=== PATIENT | female | born 1940 | race Caucasian/White ===

== ENCOUNTER 2018-04-09 08:10 | Inpatient (IN) | payer OTHER ==
[2018-04-09 08:21] VITALS: BMI 23.0
--- NOTE | 2018-04-09 08:26 | DR.DIZZY ---
HPI - Time seen Time seen: 21:00 - PCP Primary Care Physician: Denae HUFF - Complaint Chief Complaint:: PT. C/O DIZZINESS, HEADACHE, N/V. PT. WOKE UP THIS MORNING WITH SEVERE DIZZINESS. - Source History Provided: Patient, EMS - Mode of Arrival Mode of Arrival: EMS - Timing Onset of Chief Complaint: 04/09/18 <SHELDON EDUARDO - Last Filed: 04/09/18 08:22> - Time seen Time seen: 21:00 - Nurses Notes Reviewed Nurses Notes Review: Yes - Source History Provided: Patient - Context Stroke Symptoms: None <DANIA JOSE - Last Filed: 04/09/18 11:21> PMH - PMH Past Medical History: Yes Past Medical History: CVA, Diabetes, Dyslipidemia, GERD, Hypertension Past Surgical History: Yes Surgical History: [employer] Surgery Past Surgical History Comment: D&C - Family History History of Family Medical Conditions: Yes Family Medical History: [place] - Social History Does patient currently use any type of tobacco product: No Have you used tobacco products in the last 12 months: No Type of Tobacco Use: None Does any household member use tobacco: No Alcohol Use: None Do you use any recreational Drugs:: No Lives With: Family Lives Where: Home - infectious screening In the last 2 months have you had wt loss of >10#?: NO Have you had fever, night sweats or hemotysis?: No Have you traveled outside the country in the last 6 months?: No Isolation: Standard <SHELDON EDUARDO - Last Filed: 04/09/18 08:22> - Vital Signs Vitals: Temperature 97 F Pulse Rate [Left Radial] 68 Pulse Rate 66 Respiratory Rate 20 Blood Pressure [Left Arm] 162/70 Blood Pressure [Right Arm] 138/63 Blood Pressure 133/63 O2 Sat by Pulse Oximetry 97 Course - Reevaluation 1st: Improved 2nd: Unchanged - Education/Counseling Education/Counseling: Patient, Family, Education, Counseling Educated On: Treatment, Diagnosis, Prognosis, Needs for Follow Up <DANIA JOSE - Last Filed: 04/09/18 11:21> ROR - Labs Reviewed Result Diagrams: 04/09/18 09:00 04/09/18 09:00 <DANIA JOSE - Last Filed: 04/09/18 11:21> - Labs Reviewed Laboratory: WBC 6.4 X10^3/uL (3.6-10.0) 04/09/18 09:00 RBC 3.31 X10^6/uL (3.5-5.4) L 04/09/18 09:00 Hgb 9.6 g/dL (12.0-16.0) L 04/09/18 09:00 Hct 27.9 % (36.0-47.0) L 04/09/18 09:00 MCV 84.3 fL (80.0-100.0) 04/09/18 09:00 MCH 29.0 pg (27.0-34.0) 04/09/18 09:00 MCHC 34.4 g/dL (33.0-35.0) 04/09/18 09:00 RDW 12.7 % (11.6-16.5) 04/09/18 09:00 Plt Count 295 X10^3/uL (150.0-450.0) 04/09/18 09:00 MPV 8.6 fL (7.4-11.0) 04/09/18 09:00 Neut % (Auto) 79.3 % (42.0-75.0) H 04/09/18 09:00 Lymph % (Auto) 14.4 % (21.0-51.0) L 04/09/18 09:00 [place] % (Auto) 5.7 % (0.0-13.0) 04/09/18 09:00 Eos % (Auto) 0.2 % (0.9-2.9) L 04/09/18 09:00 Baso % (Auto) 0.4 % (0.2-1.0) 04/09/18 09:00 Neut # (Auto) 5.1 x10^3/uL (2.2-4.8) H 04/09/18 09:00 Lymph # (Auto) 0.9 X10^3/uL (1.3-2.9) L 04/09/18 09:00 [place] # (Auto) 0.4 x10^3/uL (0.3-0.8) 04/09/18 09:00 Eos # (Auto) 0.0 x10^3/uL (0.0-0.2) 04/09/18 09:00 Baso # (Auto) 0.0 X10^3/uL (0.0-0.1) 04/09/18 09:00 Absolute Nucleated RBC 0.0 /100WBC 04/09/18 09:00 Sodium 136 mmol/L (136-145) 04/09/18 09:00 Corrected Sodium 138 mmol/L (136-145) 04/09/18 09:00 Potassium 3.8 mmol/L (3.5-5.1) 04/09/18 09:00 Chloride 102 mmol/L (98-107) 04/09/18 09:00 Carbon Dioxide 25.1 mmol/L (21-32) 04/09/18 09:00 BUN 24 mg/dL (7-18) H 04/09/18 09:00 Creatinine 1.23 mg/dL (0.55-1.02) H 04/09/18 09:00 Est GFR (MDRD) Af Amer 54 (>60) L 04/09/18 09:00 Est GFR (MDRD) Non-Af 45 (>60) L 04/09/18 09:00 Glucose 193 mg/dL (65-99) H 04/09/18 09:00 Calcium 8.1 mg/dL (8.5-10.1) L 04/09/18 09:00 Corrected Calcium TNP 04/09/18 09:00 Total Bilirubin 0.40 mg/dL (0.2-1.0) 04/09/18 09:00 AST 29 Units/L (15-37) 04/09/18 09:00 ALT 32 Units/L (12-78) 04/09/18 09:00 Alkaline Phosphatase 50 Units/L (46-116) 04/09/18 09:00 Total Protein 7.6 g/dL (6.4-8.2) 04/09/18 09:00 Albumin 4.1 g/dL (3.4-5.0) 04/09/18 09:00 Globulin 3.5 g/dL (2.5-4.5) 04/09/18 09:00 Albumin/Globulin Ratio 1.2 Ratio (1.1-2.1) 04/09/18 09:00 <SHELDON EDUARDO - Last Filed: 04/09/18 08:22> <DANIA JOSE - Last Filed: 04/09/18 11:21> - Diagnosis Discharge Problem: Vertigo of central origin - Discharge Plan Disposition: ADMITTED INPATIENT Condition: Stable - Follow ups/Referrals Follow ups/Referrals: ESTELA HUFF [Primary Care Provider] - 3 days - Instructions Instructions: Vertigo, [id number]
[2018-04-09] MEDS ORDERED: ANTIVERT TAB 25 MG PO ONE (08:30)
[2018-04-09] MEDS ORDERED: PHENERGAN INJ 25 MG IV ONE (08:31)
[2018-04-09] MEDS ORDERED: PHENERGAN INJ 25 MG ONE (08:33)
[2018-04-09] MEDS ORDERED: ANTIVERT TAB 25 MG ONE (08:33)
[2018-04-09 09:10] LABS: BASOPHILS % (AUTO) 0.4 % (0.2-1.0); EOSINOPHILS % (AUTO) 0.2 % (0.9-2.9); HEMATOCRIT 27.9 % (36.0-47.0); HEMOGLOBIN 9.6 g/dL (12.0-16.0); LYMPHOCYTES # (AUTO) 0.9 X10^3/uL (1.3-2.9); LYMPHOCYTES % (AUTO) 14.4 % (21.0-51.0); MEAN CORPUSCULAR HGB CONC 34.4 g/dL (33.0-35.0); MEAN CORPUSCULAR VOLUME 84.3 fL (80.0-100.0); MEAN PLATELET VOLUME 8.6 fL (7.4-11.0); MONOCYTES # (AUTO) 0.4 x10^3/uL (0.3-0.8); MONOCYTES % (AUTO) 5.7 % (0.0-13.0); NEUTROPHILS # (AUTO) 5.1 x10^3/uL (2.2-4.8); NEUTROPHILS % (AUTO) 79.3 % (42.0-75.0); PLATELET COUNT 295 X10^3/uL (150.0-450.0); RED BLOOD COUNT 3.31 X10^6/uL (3.5-5.4); RED CELL DISTRIBUTION WIDTH 12.7 % (11.6-16.5); WHITE BLOOD COUNT 6.4 X10^3/uL (3.6-10.0)
[2018-04-09 09:21] LABS: ALANINE AMINOTRANSFERASE 32 Units/L (12-78); ALBUMIN 4.1 g/dL (3.4-5.0); ALKALINE PHOSPHATASE 50 Units/L (46-116); ASPARTATE AMINO TRANSFERASE 29 Units/L (15-37); BLOOD UREA NITROGEN 24 mg/dL (7-18); CALCIUM 8.1 mg/dL (8.5-10.1); CARBON DIOXIDE 25.1 mmol/L (21-32); CHLORIDE 102 mmol/L (98-107); COR NA(FOR HYPERGLY) 138 mmol/L (136-145); CREATININE 1.23 mg/dL (0.55-1.02); SODIUM 136 mmol/L (136-145); TOTAL PROTEIN 7.6 g/dL (6.4-8.2); eGFR BLACK RACES 54 (>60); eGFR NON BLACK RACES 45 (>60)
--- NOTE | 2018-04-09 09:41 | CT ---
HISTORY: Altered mental status, headache, and nausea/vomiting. Noncontrast head CT examination. Comparison: 2012. Technique: Multiple axial images of the brain were obtained from the skull base to the vertex without administra tion of IV contrast. Findings: There is unchanged bilateral, left greater than right, occipital lobe encephalomalacia which is proba [place] post ischemic in nature with unchanged ex vacuo ventricular dilatation of the left posterior horn of the ventricle. There is moderate sulcal and cisternal prominence as well as atherosclerotic diaz e in the proximal intracranial carotid and vertebral arteries, which is not out of proportion to the patient's stated age. There is diffuse CT density alteration seen in the periventricular white matter of the high and mid-convexity, which is likely in the setting of small vessel disease and not out of proportion to the patient's stated age. There is mild bilateral ex vacuo ventricular dilatation with out evidence for hydrocephalus or herniation syndrome. No midline shift is evident. No acute intrapar enchymal hemorrhage or mass can be identified. No extra-axial fluid collections are seen. No new al teration in the attenuation of the brain parenchyma can be identified to suggest acute or subacute is chemic change. However, if clinical symptoms persist, follow-up MRI imaging of the brain with diffusi on-weighted sequencing is suggested to exclude an acute ischemic event. The extracranial structures s how left maxillary and ethmoid sinusitis an associated mucoperiosteal thickening, chronic in appearan ce. IMPRESSION: 1. No acute intracranial process or changes identified. Unchanged bilateral, left greater than right , occipital lobe encephalomalacia which is probably post ischemic in nature with unchanged ex vacuo v entricular dilatation of the left posterior horn of the ventricle. 2. Age-appropriate intra-cranial changes of advancing age. Chronic sinus disease, as above. Reported By:
[2018-04-09] MEDS ORDERED: LASIX IVP ONE ×2 (10:47→11:31)
[2018-04-09] MEDS ORDERED: NS 1000 ML 1,000 ML IV SCH (12:00)
[2018-04-09] MEDS: ZOFRAN INJ 4 MG VIAL IVP PRN (12:27)
[2018-04-09] MEDS ORDERED: NS + KCL 40 MEQ/L 1,000 ML IV ONE (15:48)
[2018-04-09 16:18] LABS: MAGNESIUM 1.7 mg/dL (1.7-2.9); T4 (THYROXINE) 8.5 ug/dL (4.7-13.3); TSH (3RD GENERATION) 3.426 uIU/mL (0.358-3.74)
[2018-04-09] MEDS: DILAUDID INJ IVP PRN (16:32)
[2018-04-09] MEDS: ZANAFLEX PO ONE ×2 (16:42→18:40)
[2018-04-09] MEDS ORDERED: SOLU-Medrol 125 MG VIAL IVP ONE (18:41)
[2018-04-09] MEDS ORDERED: AMLODIPINE BESYLATE 5 MG PO SCH (21:00)
[2018-04-09] MEDS ORDERED: PATIENT'S HOME MEDICATION (Simvastatin [Simvastatin] 20 MG) PO SCH (21:00)
[2018-04-09] MEDS ORDERED: INSULIN GLARGINE 20 UNIT SC SCH (21:00)
[2018-04-09] MEDS: NORVASC TAB 5 MG PO SCH (22:03)
[2018-04-09] MEDS: SNACK - Diabetic Appropriate PO SCH (22:03)
[2018-04-09] MEDS: ZOCOR TAB 20 MG PO SCH (22:03)
[2018-04-09] MEDS: LANTUS SC SCH (22:04)
[2018-04-10 05:19] LABS: BASOPHILS % (AUTO) 0.1 % (0.2-1.0); HEMATOCRIT 29.5 % (36.0-47.0); HEMOGLOBIN 10.2 g/dL (12.0-16.0); LYMPHOCYTES # (AUTO) 0.7 X10^3/uL (1.3-2.9); MEAN CORPUSCULAR HEMOGLOBIN 29.3 pg (27.0-34.0); MEAN CORPUSCULAR HGB CONC 34.4 g/dL (33.0-35.0); MEAN PLATELET VOLUME 9.2 fL (7.4-11.0); MONOCYTES # (AUTO) 0.1 x10^3/uL (0.3-0.8); MONOCYTES % (AUTO) 0.9 % (0.0-13.0); NEUTROPHILS # (AUTO) 6.6 x10^3/uL (2.2-4.8); PLATELET COUNT 304 X10^3/uL (150.0-450.0); RED BLOOD COUNT 3.47 X10^6/uL (3.5-5.4); RED CELL DISTRIBUTION WIDTH 13.1 % (11.6-16.5); WHITE BLOOD COUNT 7.4 X10^3/uL (3.6-10.0)
[2018-04-10 05:29] LABS: ALANINE AMINOTRANSFERASE 30 Units/L (12-78); ALBUMIN 3.7 g/dL (3.4-5.0); ALKALINE PHOSPHATASE 46 Units/L (46-116); ASPARTATE AMINO TRANSFERASE 29 Units/L (15-37); BLOOD UREA NITROGEN 29 mg/dL (7-18); CALCIUM 8.1 mg/dL (8.5-10.1); CARBON DIOXIDE 24.8 mmol/L (21-32); CHLORIDE 101 mmol/L (98-107); COR NA(FOR HYPERGLY) 139 mmol/L (136-145); CREATININE 1.47 mg/dL (0.55-1.02); SODIUM 136 mmol/L (136-145); TOTAL PROTEIN 7.3 g/dL (6.4-8.2); eGFR BLACK RACES 44 (>60); eGFR NON BLACK RACES 36 (>60)
[2018-04-10] MEDS: HumuLIN R SUBCUT PRN (05:41)
[2018-04-10] MEDS: DILAUDID INJ IVP PRN (06:50)
[2018-04-10] MEDS: NS 1000 ML 1,000 ML IV SCH ×2 (06:53→16:11)
[2018-04-10] MEDS: PriLOSEC PO SCH (08:13)
[2018-04-10] MEDS: ASPIRIN EC 81 MG PO SCH (08:13)
[2018-04-10] MEDS: ZESTRIL TAB 40 MG PO SCH ×2 (08:14→08:20)
[2018-04-10] MEDS: TRICOR TAB 160 MG PO SCH (08:14)
[2018-04-10] MEDS: PLAVIX PO SCH (08:17)
[2018-04-10] MEDS ORDERED: CLOPIDOGREL BISULFATE 75 MG PO SCH (09:00)
[2018-04-10] MEDS ORDERED: PATIENT'S HOME MEDICATION (Omeprazole [Prilosec 40 Mg] 40 MG) PO SCH (09:00)
[2018-04-10] MEDS ORDERED: LISINOPRIL 40 MG PO SCH (09:00)
[2018-04-10] MEDS: ZOFRAN INJ 4 MG VIAL IVP PRN (10:08)
[2018-04-10] MEDS ORDERED: BENADRYL INJ 50 MG VIAL IV PRN (13:20)
[2018-04-10] MEDS: ROCEPHIN 1 GM IV PREMIX 1 GM/50 ML IV.SOLN. IV SCH (14:05)
--- NOTE | 2018-04-10 14:58 | MRI ---
Indication: Headaches and dizziness and mental status changes. Exam: MRI brain without contrast. Technique: Routine multiplanar multisequence imaging was performed through the brain without contrast . Comparison: 04/09/2018. Findings: The ventricles are moderately enlarged and there is diffuse mild prominence of the cortical sulci. There is compensatory dilatation of the left occipital and temporal horns of left lateral gema tricle extending into the temporal lobe . There is no abnormal signal on the diffusion-weighted data set which would suggest any type of acute ischemia. There are punctate and confluent areas of abnorma l signal throughout the periventricular white matter extending around the occipital and temporal horn s of the left lateral ventricle and along the pontine portion of the brainstem. No intracranial hemor rhage or edema is seen and there is no extra-axial fluid collection or mass. The midline structures a re unremarkable. The vascular structures show normal flow voids. Impression: Diffuse atrophy with no acute intracranial abnormality seen. Moderate ventriculomegaly which is slightly out of proportion to the amount of atrophy could represen t normal pressure hydrocephalus. Compensatory dilatation along the occipital and temporal horns of the left lateral ventricle which is probably due to an old deep white matter infarct along the surrounding ventricle. Mild chronic microischemic changes scattered throughout the deep white matter and along pontine porti on of the brainstem. Chronic left maxillary sinusitis. Reported By:
[2018-04-10] MEDS: NORVASC TAB 5 MG PO SCH (21:02)
[2018-04-10] MEDS: ZOCOR TAB 20 MG PO SCH (21:02)
[2018-04-10] MEDS: LANTUS SC SCH (21:02)
[2018-04-10] MEDS: SNACK - Diabetic Appropriate PO SCH (21:03)
--- NOTE | 2018-04-10 21:47 | VAS ---
HISTORY: Dizziness, headache Study: Carotid ultrasound Comparison: None Technique: Multiple teresa scale and color flow Doppler images of the right and left carotid arterial s ystem were obtained. The vertebral arterial system was evaluated as well. Findings: The peak systolic velocity of the right ICA is 115 cm/sec. The peak systolic velocity of the left IC A is 131 cm/sec. The ICA/CCA ratio on the right is 1.9. The ICA/CCA ratio on the left is 0.9. Bilater al antegrade vertebral flow was noted. IMPRESSION: Estimated stenosis on the left in the range of 50-69% by velocity criteria. Estimated stenosis on the right in the range of 0-50% by velocity criteria. Reported By:
[2018-04-11] MEDS ORDERED: ANTIVERT TAB 25 MG PO PRN (03:22)
[2018-04-11 05:26] LABS: BASOPHILS % (AUTO) 0.3 % (0.2-1.0); EOSINOPHILS % (AUTO) 0.3 % (0.9-2.9); HEMATOCRIT 27.8 % (36.0-47.0); HEMOGLOBIN 9.5 g/dL (12.0-16.0); LYMPHOCYTES # (AUTO) 2.3 X10^3/uL (1.3-2.9); LYMPHOCYTES % (AUTO) 26.1 % (21.0-51.0); MEAN CORPUSCULAR HEMOGLOBIN 29.1 pg (27.0-34.0); MEAN CORPUSCULAR VOLUME 85.6 fL (80.0-100.0); MONOCYTES # (AUTO) 0.6 x10^3/uL (0.3-0.8); MONOCYTES % (AUTO) 7.5 % (0.0-13.0); NEUTROPHILS # (AUTO) 5.7 x10^3/uL (2.2-4.8); NEUTROPHILS % (AUTO) 65.8 % (42.0-75.0); PLATELET COUNT 284 X10^3/uL (150.0-450.0); RED BLOOD COUNT 3.25 X10^6/uL (3.5-5.4); RED CELL DISTRIBUTION WIDTH 13.2 % (11.6-16.5); WHITE BLOOD COUNT 8.6 X10^3/uL (3.6-10.0)
[2018-04-11 05:32] LABS: ALBUMIN 3.3 g/dL (3.4-5.0); CALCIUM 7.8 mg/dL (8.5-10.1); CARBON DIOXIDE 26.7 mmol/L (21-32); COR CA(FOR HYPOALB) 8.4 mg/dL (8.5-10.1); CREATININE 1.39 mg/dL (0.55-1.02); TOTAL PROTEIN 6.7 g/dL (6.4-8.2)
[2018-04-11] MEDS: ROCEPHIN 1 GM IV PREMIX 1 GM/50 ML IV.SOLN. IV SCH (08:50)
[2018-04-11] MEDS: PLAVIX PO SCH (08:51)
[2018-04-11] MEDS: ASPIRIN EC 81 MG PO SCH (08:51)
[2018-04-11] MEDS: TRICOR TAB 160 MG PO SCH (08:51)
[2018-04-11] MEDS: PriLOSEC PO SCH (08:51)
[2018-04-11] MEDS: SOLU-Medrol 40 MG VIAL IVP SCH ×3 (11:56→21:16)
[2018-04-11] MEDS: ZyrTEC TAB 10 MG PO SCH (11:56)
--- NOTE | 2018-04-11 16:37 | CT ---
HISTORY: Neck pain radiating into bilateral extremities, headache Study: CT cervical spine without contrast Comparison: None Technique: Multiple axial images of the cervical spine were obtained from the skull base to the thora cic inlet without administration of IV contrast. Sagittal and coronal reformats were performed and r eviewed. Findings: Imaging of cervical spine demonstrates minimal anterolisthesis of C6 on C7 which is likely secondary to advanced facet hypertrophy and degenerative disc disease at this level. No acute fracture is ident ified. Multilevel degenerate endplate changes and marginal osteophytosis are visualized. There is mul tilevel advanced facet hypertrophy throughout the cervical spine as well. However, the posterior [place] ents are intact. Uncovertebral spurring and disc osteophyte complexes are present throughout the cerv ical spine. These findings along with facet hypertrophy likely result in multilevel varying degrees o f neuroforaminal compromise, findings which would be best assessed with MRI in a nonemergent setting. There appears to be moderate to severe neuroforaminal compromise on the right at the C4-C5 level. At least mild to moderate neuroforaminal compromise is noted at the left at the C5-C6 level. Moderate n euroforaminal compromise on the left is also visualized at the C6-C7 level. Evaluation of the pre and paravertebral soft tissues is grossly unremarkable. Evaluation of the visualized brain demonstrates enlargement of the left lateral ventricle which may be ex vacuo due to prior remote infarct. Global a trophy and chronic small vessel disease are noted. Pleuro parenchymal scarring is visualized within t he lung apices. Periodontal disease involving a left mandibular molar is noted. IMPRESSION: 1. Advanced cervical spondylosis and facet hypertrophy as detailed above. Reported By:
[2018-04-11] MEDS: NORVASC TAB 5 MG PO SCH (21:13)
[2018-04-11] MEDS: ZOCOR TAB 20 MG PO SCH (21:13)
[2018-04-11] MEDS: LANTUS SC SCH (22:00)
[2018-04-11] MEDS: SNACK - Diabetic Appropriate PO SCH (22:00)
[2018-04-11] MEDS: HumuLIN R SUBCUT PRN (22:02)
[2018-04-12 05:30] LABS: BASOPHILS % (AUTO) 0.1 % (0.2-1.0); HEMATOCRIT 28.3 % (36.0-47.0); HEMOGLOBIN 9.9 g/dL (12.0-16.0); LYMPHOCYTES % (AUTO) 11.7 % (21.0-51.0); MEAN CORPUSCULAR HEMOGLOBIN 29.5 pg (27.0-34.0); MEAN CORPUSCULAR HGB CONC 34.9 g/dL (33.0-35.0); MEAN CORPUSCULAR VOLUME 84.5 fL (80.0-100.0); MEAN PLATELET VOLUME 9.1 fL (7.4-11.0); MONOCYTES # (AUTO) 0.2 x10^3/uL (0.3-0.8); MONOCYTES % (AUTO) 2.2 % (0.0-13.0); NEUTROPHILS # (AUTO) 7.1 x10^3/uL (2.2-4.8); PLATELET COUNT 298 X10^3/uL (150.0-450.0); RED BLOOD COUNT 3.35 X10^6/uL (3.5-5.4); RED CELL DISTRIBUTION WIDTH 12.7 % (11.6-16.5); WHITE BLOOD COUNT 8.2 X10^3/uL (3.6-10.0)
[2018-04-12 05:40] LABS: ALANINE AMINOTRANSFERASE 29 Units/L (12-78); ALBUMIN 3.4 g/dL (3.4-5.0); ALKALINE PHOSPHATASE 45 Units/L (46-116); ASPARTATE AMINO TRANSFERASE 26 Units/L (15-37); CARBON DIOXIDE 27.2 mmol/L (21-32); CHLORIDE 103 mmol/L (98-107); COR NA(FOR HYPERGLY) 139 mmol/L (136-145); CREATININE 1.22 mg/dL (0.55-1.02); SODIUM 137 mmol/L (136-145); TOTAL PROTEIN 6.9 g/dL (6.4-8.2); eGFR BLACK RACES 55 (>60); eGFR NON BLACK RACES 45 (>60)
[2018-04-12 05:46] LABS: BLOOD UREA NITROGEN 29 mg/dL (7-18)
[2018-04-12] MEDS: SOLU-Medrol 40 MG VIAL IVP SCH ×3 (06:18→22:44)
[2018-04-12] MEDS: HumuLIN R SUBCUT PRN ×3 (06:51→23:00)
[2018-04-12] MEDS: PriLOSEC PO SCH (08:57)
[2018-04-12] MEDS: ASPIRIN EC 81 MG PO SCH (08:58)
[2018-04-12] MEDS: TRICOR TAB 160 MG PO SCH (08:58)
[2018-04-12] MEDS: ZyrTEC TAB 10 MG PO SCH (08:58)
[2018-04-12] MEDS: ROCEPHIN 1 GM IV PREMIX 1 GM/50 ML IV.SOLN. IV SCH (09:00)
[2018-04-12] MEDS: PLAVIX PO SCH (09:00)
[2018-04-12] MEDS: ANTIVERT TAB 25 MG PO PRN ×2 (13:00→20:53)
[2018-04-12] MEDS: NORVASC TAB 5 MG PO SCH (20:53)
[2018-04-12] MEDS: ZOCOR TAB 20 MG PO SCH (20:53)
[2018-04-12] MEDS: SNACK - Diabetic Appropriate PO SCH (20:54)
[2018-04-12] MEDS: NS 1000 ML 1,000 ML IV SCH (20:54)
[2018-04-12] MEDS: LANTUS SC SCH (23:00)
[2018-04-13 05:17] LABS: BASOPHILS % (AUTO) 0.1 % (0.2-1.0); HEMATOCRIT 27.3 % (36.0-47.0); HEMOGLOBIN 9.5 g/dL (12.0-16.0); LYMPHOCYTES # (AUTO) 1.2 X10^3/uL (1.3-2.9); LYMPHOCYTES % (AUTO) 12.1 % (21.0-51.0); MEAN CORPUSCULAR HEMOGLOBIN 29.3 pg (27.0-34.0); MEAN CORPUSCULAR HGB CONC 34.8 g/dL (33.0-35.0); MEAN CORPUSCULAR VOLUME 84.2 fL (80.0-100.0); MEAN PLATELET VOLUME 9.5 fL (7.4-11.0); MONOCYTES # (AUTO) 0.4 x10^3/uL (0.3-0.8); MONOCYTES % (AUTO) 4.3 % (0.0-13.0); NEUTROPHILS # (AUTO) 8.3 x10^3/uL (2.2-4.8); NEUTROPHILS % (AUTO) 83.5 % (42.0-75.0); PLATELET COUNT 270 X10^3/uL (150.0-450.0); RED BLOOD COUNT 3.24 X10^6/uL (3.5-5.4); RED CELL DISTRIBUTION WIDTH 12.9 % (11.6-16.5); WHITE BLOOD COUNT 9.9 X10^3/uL (3.6-10.0)
[2018-04-13 05:26] LABS: ALANINE AMINOTRANSFERASE 17 Units/L (12-78); ALBUMIN 3.4 g/dL (3.4-5.0); ALKALINE PHOSPHATASE 46 Units/L (46-116); ASPARTATE AMINO TRANSFERASE 19 Units/L (15-37); BLOOD UREA NITROGEN 28 mg/dL (7-18); CALCIUM 8.1 mg/dL (8.5-10.1); CARBON DIOXIDE 28.3 mmol/L (21-32); CHLORIDE 104 mmol/L (98-107); COR NA(FOR HYPERGLY) 139 mmol/L (136-145); CREATININE 1.16 mg/dL (0.55-1.02); SODIUM 136 mmol/L (136-145); TOTAL PROTEIN 6.8 g/dL (6.4-8.2); eGFR BLACK RACES 58 (>60); eGFR NON BLACK RACES 48 (>60)
[2018-04-13] MEDS: SOLU-Medrol 40 MG VIAL IVP SCH ×3 (06:13→22:00)
[2018-04-13] MEDS: HumuLIN R SUBCUT PRN ×3 (06:41→17:05)
[2018-04-13] MEDS: ASPIRIN EC 81 MG PO SCH (09:30)
[2018-04-13] MEDS: ZyrTEC TAB 10 MG PO SCH (09:30)
[2018-04-13] MEDS: TRICOR TAB 160 MG PO SCH (09:30)
[2018-04-13] MEDS: ROCEPHIN 1 GM IV PREMIX 1 GM/50 ML IV.SOLN. IV SCH (09:30)
[2018-04-13] MEDS: PriLOSEC PO SCH (09:30)
[2018-04-13] MEDS: PLAVIX PO SCH (09:30)
[2018-04-13] MEDS: NS 1000 ML 1,000 ML IV SCH (18:00)
--- NOTE | 2018-04-13 18:22 | PCM.PROG ---
Progress Note - Progress Note for Day of Date: 04/13/18 - Subjective Subjective: 78 WF ER ADMISSION ON 04/09 WITH INTRACTABLE VERTIGO, N/V. PT HAS BEEN ON ORAL MECLIZINE WITH GENTLE HYDRATION AND ANTIEMETICS WITH PT AND GRADUAL IMPROVEMENT. PT SITTING UP IN CHAIR THIS AM, COMPLETED BREAKFAST, DENIES ANY PAIN FAMILY AT BEDSIDE, PT SMILING AND LAUGHING. FAMILY AGREES MUCH IMPROVEMENT OVERALL. - Past Medical Family Social History Past Med/Fam/Surg Hx: No changes since H&P Allergies: Allergies codeine Allergy (Verified 04/09/18 08:16) - Review of Systems ROS: No change since H&P - Vital Signs and I&O's Vital Signs: Temperature 98.1 F Pulse Rate [Left Radial] 52 Pulse Rate 66 Respiratory Rate 20 Blood Pressure [Left Arm] 134/65 Blood Pressure [Right Arm] 134/64 Blood Pressure 133/63 O2 Sat by Pulse Oximetry 98 Intake and Output: Intake & Output 04/11/18 04/12/18 04/13/18 04/14/18 11:59 11:59 11:59 11:59 Intake Total 5980 812 7463 720 Balance 2884 227 9918 720 - Physical Exam Oriented: Normal Eyes: Normal Ear: Normal Nose: Normal Throat: Normal Respiratory: Normal Cardiovascular: Normal. negative: Edema : Normal Auscultation: Bowel Sounds: Normal Tenderness: Normal Skin: Decreased Turgur Musculoskeletal: Back:Thoracic, Back:Lumbar Psychiatric: Anxiety Affect: Anxious Speech Pattern: Clear, Appropriate - Laboratory and Diagnostics Result Diagrams: 04/13/18 04:16 04/13/18 04:16 Labs: Laboratory WBC 9.9 X10^3/uL (3.6-10.0) 04/13/18 04:16 RBC 3.24 X10^6/uL (3.5-5.4) L 04/13/18 04:16 Hgb 9.5 g/dL (12.0-16.0) L 04/13/18 04:16 Hct 27.3 % (36.0-47.0) L 04/13/18 04:16 MCV 84.2 fL (80.0-100.0) 04/13/18 04:16 MCH 29.3 pg (27.0-34.0) 04/13/18 04:16 MCHC 34.8 g/dL (33.0-35.0) 04/13/18 04:16 RDW 12.9 % (11.6-16.5) 04/13/18 04:16 Plt Count 270 X10^3/uL (150.0-450.0) 04/13/18 04:16 MPV 9.5 fL (7.4-11.0) 04/13/18 04:16 Neut % (Auto) 83.5 % (42.0-75.0) H 04/13/18 04:16 Lymph % (Auto) 12.1 % (21.0-51.0) L 04/13/18 04:16 [place] % (Auto) 4.3 % (0.0-13.0) 04/13/18 04:16 Eos % (Auto) 0.0 % (0.9-2.9) L 04/13/18 04:16 Baso % (Auto) 0.1 % (0.2-1.0) L 04/13/18 04:16 Neut # (Auto) 8.3 x10^3/uL (2.2-4.8) H 04/13/18 04:16 Lymph # (Auto) 1.2 X10^3/uL (1.3-2.9) L 04/13/18 04:16 [place] # (Auto) 0.4 x10^3/uL (0.3-0.8) 04/13/18 04:16 Eos # (Auto) 0.0 x10^3/uL (0.0-0.2) 04/13/18 04:16 Baso # (Auto) 0.0 X10^3/uL (0.0-0.1) 04/13/18 04:16 Absolute Nucleated RBC 0.0 /100WBC 04/13/18 04:16 Sodium 136 mmol/L (136-145) 04/13/18 04:16 Corrected Sodium 139 mmol/L (136-145) 04/13/18 04:16 Potassium 4.6 mmol/L (3.5-5.1) 04/13/18 04:16 Chloride 104 mmol/L (98-107) 04/13/18 04:16 Carbon Dioxide 28.3 mmol/L (21-32) 04/13/18 04:16 BUN 28 mg/dL (7-18) H 04/13/18 04:16 Creatinine 1.16 mg/dL (0.55-1.02) H 04/13/18 04:16 Est GFR (MDRD) Af Amer 58 (>60) L 04/13/18 04:16 Est GFR (MDRD) Non-Af 48 (>60) L 04/13/18 04:16 Glucose 220 mg/dL (65-99) H 04/13/18 04:16 POC Glucose (mg/dL) 249 mg/dL (65-99) H 04/13/18 16:03 Calcium 8.1 mg/dL (8.5-10.1) L 04/13/18 04:16 Corrected Calcium TNP 04/13/18 04:16 Magnesium 1.7 mg/dL (1.7-2.9) 04/09/18 09:00 Iron 64 ug/dL (50-175) 04/11/18 04:09 Transferrin 244 mg/dL (202-364) 04/11/18 04:09 Ferritin 138 ng/mL (8-252) 04/11/18 04:09 Total Bilirubin 0.30 mg/dL (0.2-1.0) 04/13/18 04:16 AST 19 Units/L (15-37) 04/13/18 04:16 ALT 17 Units/L (12-78) 04/13/18 04:16 Alkaline Phosphatase 46 Units/L (46-116) 04/13/18 04:16 Total Protein 6.8 g/dL (6.4-8.2) 04/13/18 04:16 Albumin 3.4 g/dL (3.4-5.0) 04/13/18 04:16 Globulin 3.4 g/dL (2.5-4.5) 04/13/18 04:16 Albumin/Globulin Ratio 1.0 Ratio (1.1-2.1) L 04/13/18 04:16 Vitamin B12 657 pg/mL (193-986) 04/11/18 04:09 Folate 17.2 ng/mL (>8.6) 04/11/18 04:09 Thyroxine (T4) 8.5 ug/dL (4.7-13.3) 04/09/18 09:00 TSH 3rd Generation 3.426 uIU/mL (0.358-3.74) 04/09/18 09:00 Salicylates 5.8 mg/dL (2.8-20) 04/10/18 15:34 - Plan (1) Vertigo of central origin Status: Acute Plan: CONTINUE ANTIVERT PO. D/C SOLU MEDROL IV. CONTINUE NAUSEA CONTROL, PHYSICAL THERAPY. GENTLE HYDRATION. BLOOD SUGAR CONTROL AND BP MONITORING. REPEAT AM LABS (2) Dizziness Status: Acute (3) Diabetes Status: Acute (4) History of CVA (cerebrovascular accident) Status: Acute (5) N&V (nausea and vomiting) Status: Acute
[2018-04-13] MEDS: SNACK - Diabetic Appropriate PO SCH (19:59)
[2018-04-13] MEDS: ZOCOR TAB 20 MG PO SCH (22:00)
[2018-04-13] MEDS: LANTUS SC SCH (22:00)
[2018-04-13] MEDS: NORVASC TAB 5 MG PO SCH (22:59)
[2018-04-14] MEDS: SOLU-Medrol 40 MG VIAL IVP SCH (05:55)
[2018-04-14 05:58] LABS: BASOPHILS % (AUTO) 0 % (0.2-1.0); HEMATOCRIT 26.5 % (36.0-47.0); HEMOGLOBIN 9.4 g/dL (12.0-16.0); LYMPHOCYTES # (AUTO) 1.3 X10^3/uL (1.3-2.9); LYMPHOCYTES % (AUTO) 13.4 % (21.0-51.0); MEAN CORPUSCULAR HEMOGLOBIN 29.3 pg (27.0-34.0); MEAN CORPUSCULAR HGB CONC 35.4 g/dL (33.0-35.0); MEAN CORPUSCULAR VOLUME 82.9 fL (80.0-100.0); MEAN PLATELET VOLUME 9.4 fL (7.4-11.0); MONOCYTES # (AUTO) 0.5 x10^3/uL (0.3-0.8); MONOCYTES % (AUTO) 4.6 % (0.0-13.0); NEUTROPHILS # (AUTO) 8.1 x10^3/uL (2.2-4.8); PLATELET COUNT 292 X10^3/uL (150.0-450.0); RED BLOOD COUNT 3.19 X10^6/uL (3.5-5.4); WHITE BLOOD COUNT 9.9 X10^3/uL (3.6-10.0)
[2018-04-14 06:06] LABS: ALANINE AMINOTRANSFERASE 28 Units/L (12-78); ALBUMIN 3.4 g/dL (3.4-5.0); ALKALINE PHOSPHATASE 41 Units/L (46-116); ASPARTATE AMINO TRANSFERASE 18 Units/L (15-37); BLOOD UREA NITROGEN 30 mg/dL (7-18); CALCIUM 8.1 mg/dL (8.5-10.1); CARBON DIOXIDE 26.5 mmol/L (21-32); CHLORIDE 104 mmol/L (98-107); COR NA(FOR HYPERGLY) 136 mmol/L (136-145); CREATININE 1.12 mg/dL (0.55-1.02); SODIUM 135 mmol/L (136-145); TOTAL PROTEIN 6.7 g/dL (6.4-8.2); eGFR BLACK RACES > 60 (>60); eGFR NON BLACK RACES 50 (>60)
[2018-04-14] MEDS: TRICOR TAB 160 MG PO SCH (09:02)
[2018-04-14] MEDS: PriLOSEC PO SCH (09:02)
[2018-04-14] MEDS: ROCEPHIN 1 GM IV PREMIX 1 GM/50 ML IV.SOLN. IV SCH (09:02)
[2018-04-14] MEDS: PLAVIX PO SCH (09:05)
[2018-04-14] MEDS: ASPIRIN EC 81 MG PO SCH (09:06)
[2018-04-14] MEDS: ZyrTEC TAB 10 MG PO SCH (09:06)
[2018-04-14] MEDS: ANTIVERT TAB 25 MG PO PRN ×2 (09:07→16:30)
[2018-04-14] MEDS: HumuLIN R SUBCUT PRN ×2 (12:17→17:28)
--- NOTE | 2018-04-14 13:50 | PCM.PROG ---
Progress Note - Progress Note for Day of Date: 04/14/18 - Subjective Subjective: 78 WF ER ADMISSION ON 04/09 WITH INTRACTABLE VERTIGO, N/V. PT HAS BEEN ON ORAL MECLIZINE WITH GENTLE HYDRATION AND ANTIEMETICS WITH PT AND GRADUAL IMPROVEMENT. PT SITTING UP IN CHAIR THIS AM, COMPLETED BREAKFAST, DENIES ANY PAIN FAMILY AT BEDSIDE, STATES PT USED BEDSIDE COMMODE WITHOUT ASSITANCE, THIS AM PT CO SOME DIZZINESS. PT CO NO SLEEP LAST NIGHT, DENIES SOB OR CP THIS AM - Past Medical Family Social History Past Med/Fam/Surg Hx: No changes since H&P Allergies: Allergies codeine Allergy (Verified 04/09/18 08:16) - Review of Systems ROS: No change since H&P - Vital Signs and I&O's Vital Signs: Temperature 97.8 F Pulse Rate [Left Radial] 65 Pulse Rate 66 Respiratory Rate 20 Blood Pressure [Left Arm] 162/65 Blood Pressure [Right Arm] 134/64 Blood Pressure 133/63 O2 Sat by Pulse Oximetry 98 Intake and Output: Intake & Output 04/12/18 04/13/18 04/14/18 04/15/18 11:59 11:59 11:59 11:59 Intake Total 640 1010 1610 Balance 640 1010 1610 - Physical Exam Oriented: Normal Eyes: Normal Ear: Normal Nose: Normal Throat: Normal Respiratory: Normal Cardiovascular: Normal. negative: Edema : Normal Auscultation: Bowel Sounds: Normal Tenderness: Normal Skin: Decreased Turgur Musculoskeletal: Back:Thoracic, Back:Lumbar Psychiatric: Anxiety Affect: Anxious Speech Pattern: Clear, Appropriate - Laboratory and Diagnostics Result Diagrams: 04/14/18 04:39 04/14/18 04:39 Labs: Laboratory WBC 9.9 X10^3/uL (3.6-10.0) 04/14/18 04:39 RBC 3.19 X10^6/uL (3.5-5.4) L 04/14/18 04:39 Hgb 9.4 g/dL (12.0-16.0) L 04/14/18 04:39 Hct 26.5 % (36.0-47.0) L 04/14/18 04:39 MCV 82.9 fL (80.0-100.0) 04/14/18 04:39 MCH 29.3 pg (27.0-34.0) 04/14/18 04:39 MCHC 35.4 g/dL (33.0-35.0) H 04/14/18 04:39 RDW 13.0 % (11.6-16.5) 04/14/18 04:39 Plt Count 292 X10^3/uL (150.0-450.0) 04/14/18 04:39 MPV 9.4 fL (7.4-11.0) 04/14/18 04:39 Neut % (Auto) 82.0 % (42.0-75.0) H 04/14/18 04:39 Lymph % (Auto) 13.4 % (21.0-51.0) L 04/14/18 04:39 [place] % (Auto) 4.6 % (0.0-13.0) 04/14/18 04:39 Eos % (Auto) 0.0 % (0.9-2.9) L 04/14/18 04:39 Baso % (Auto) 0 % (0.2-1.0) L 04/14/18 04:39 Neut # (Auto) 8.1 x10^3/uL (2.2-4.8) H 04/14/18 04:39 Lymph # (Auto) 1.3 X10^3/uL (1.3-2.9) 04/14/18 04:39 [place] # (Auto) 0.5 x10^3/uL (0.3-0.8) 04/14/18 04:39 Eos # (Auto) 0.0 x10^3/uL (0.0-0.2) 04/14/18 04:39 Baso # (Auto) 0.0 X10^3/uL (0.0-0.1) 04/14/18 04:39 Absolute Nucleated RBC 0.0 /100WBC 04/14/18 04:39 Sodium 135 mmol/L (136-145) L 04/14/18 04:39 Corrected Sodium 136 mmol/L (136-145) 04/14/18 04:39 Potassium 4.0 mmol/L (3.5-5.1) 04/14/18 04:39 Chloride 104 mmol/L (98-107) 04/14/18 04:39 Carbon Dioxide 26.5 mmol/L (21-32) 04/14/18 04:39 BUN 30 mg/dL (7-18) H 04/14/18 04:39 Creatinine 1.12 mg/dL (0.55-1.02) H 04/14/18 04:39 Est GFR (MDRD) Af Amer > 60 (>60) 04/14/18 04:39 Est GFR (MDRD) Non-Af 50 (>60) L 04/14/18 04:39 Glucose 146 mg/dL (65-99) H 04/14/18 04:39 POC Glucose (mg/dL) 285 mg/dL (65-99) H 04/14/18 12:07 Calcium 8.1 mg/dL (8.5-10.1) L 04/14/18 04:39 Corrected Calcium TNP 04/14/18 04:39 Magnesium 1.7 mg/dL (1.7-2.9) 04/09/18 09:00 Iron 64 ug/dL (50-175) 04/11/18 04:09 Transferrin 244 mg/dL (202-364) 04/11/18 04:09 Ferritin 138 ng/mL (8-252) 04/11/18 04:09 Total Bilirubin 0.30 mg/dL (0.2-1.0) 04/14/18 04:39 AST 18 Units/L (15-37) 04/14/18 04:39 ALT 28 Units/L (12-78) 04/14/18 04:39 Alkaline Phosphatase 41 Units/L (46-116) L 04/14/18 04:39 Total Protein 6.7 g/dL (6.4-8.2) 04/14/18 04:39 Albumin 3.4 g/dL (3.4-5.0) 04/14/18 04:39 Globulin 3.3 g/dL (2.5-4.5) 04/14/18 04:39 Albumin/Globulin Ratio 1.0 Ratio (1.1-2.1) L 04/14/18 04:39 Vitamin B12 657 pg/mL (193-986) 04/11/18 04:09 Folate 17.2 ng/mL (>8.6) 04/11/18 04:09 Thyroxine (T4) 8.5 ug/dL (4.7-13.3) 04/09/18 09:00 TSH 3rd Generation 3.426 uIU/mL (0.358-3.74) 04/09/18 09:00 Salicylates 5.8 mg/dL (2.8-20) 04/10/18 15:34 - Plan (1) Vertigo of central origin Status: Acute Plan: CONTINUE ANTIVERT PO. CONTINUE NAUSEA CONTROL, PHYSICAL THERAPY. GENTLE HYDRATION. BLOOD SUGAR CONTROL AND BP MONITORING. REPEAT AM LABS (2) Dizziness Status: Acute Plan: IMPROVING, CONTINUE PT (3) Diabetes Status: Acute (4) History of CVA (cerebrovascular accident) Status: Acute (5) N&V (nausea and vomiting) Status: Acute
[2018-04-14] MEDS: SNACK - Diabetic Appropriate PO SCH (21:34)
[2018-04-14] MEDS: LANTUS SC SCH (21:35)
[2018-04-14] MEDS: ZOCOR TAB 20 MG PO SCH (21:35)
[2018-04-14] MEDS: NORVASC TAB 5 MG PO SCH (21:35)
[2018-04-15] MEDS: ANTIVERT TAB 25 MG PO PRN ×2 (05:28→20:49)
[2018-04-15 06:34] LABS: BASOPHILS % (AUTO) 0.1 % (0.2-1.0); EOSINOPHILS % (AUTO) 0.2 % (0.9-2.9); HEMATOCRIT 27.2 % (36.0-47.0); HEMOGLOBIN 9.6 g/dL (12.0-16.0); LYMPHOCYTES # (AUTO) 3.7 X10^3/uL (1.3-2.9); LYMPHOCYTES % (AUTO) 35.8 % (21.0-51.0); MEAN CORPUSCULAR HEMOGLOBIN 29.3 pg (27.0-34.0); MEAN CORPUSCULAR HGB CONC 35.4 g/dL (33.0-35.0); MEAN CORPUSCULAR VOLUME 82.8 fL (80.0-100.0); MEAN PLATELET VOLUME 9.5 fL (7.4-11.0); MONOCYTES # (AUTO) 0.9 x10^3/uL (0.3-0.8); MONOCYTES % (AUTO) 8.7 % (0.0-13.0); NEUTROPHILS # (AUTO) 5.8 x10^3/uL (2.2-4.8); NEUTROPHILS % (AUTO) 55.2 % (42.0-75.0); PLATELET COUNT 298 X10^3/uL (150.0-450.0); RED BLOOD COUNT 3.28 X10^6/uL (3.5-5.4); RED CELL DISTRIBUTION WIDTH 12.9 % (11.6-16.5); WHITE BLOOD COUNT 10.4 X10^3/uL (3.6-10.0)
[2018-04-15 06:58] LABS: ALANINE AMINOTRANSFERASE 29 Units/L (12-78); ALBUMIN 3.2 g/dL (3.4-5.0); ALKALINE PHOSPHATASE 40 Units/L (46-116); ASPARTATE AMINO TRANSFERASE 18 Units/L (15-37); BLOOD UREA NITROGEN 29 mg/dL (7-18); CALCIUM 7.8 mg/dL (8.5-10.1); CARBON DIOXIDE 28.9 mmol/L (21-32); CHLORIDE 105 mmol/L (98-107); COR CA(FOR HYPOALB) 8.4 mg/dL (8.5-10.1); CREATININE 1.08 mg/dL (0.55-1.02); SODIUM 141 mmol/L (136-145); TOTAL PROTEIN 6.2 g/dL (6.4-8.2); eGFR BLACK RACES > 60 (>60); eGFR NON BLACK RACES 52 (>60)
[2018-04-15] MEDS: ASPIRIN EC 81 MG PO SCH (08:30)
[2018-04-15] MEDS: ZyrTEC TAB 10 MG PO SCH (08:30)
[2018-04-15] MEDS: PLAVIX PO SCH (08:30)
[2018-04-15] MEDS: ROCEPHIN 1 GM IV PREMIX 1 GM/50 ML IV.SOLN. IV SCH (08:30)
[2018-04-15] MEDS: TRICOR TAB 160 MG PO SCH (08:30)
[2018-04-15] MEDS: PriLOSEC PO SCH (08:30)
[2018-04-15] MEDS: NORVASC TAB 5 MG PO SCH (20:49)
[2018-04-15] MEDS: ZOCOR TAB 20 MG PO SCH (20:49)
[2018-04-15] MEDS: SNACK - Diabetic Appropriate PO SCH (20:53)
[2018-04-15] MEDS: ZANAFLEX PO PRN (20:55)
[2018-04-15] MEDS: LANTUS SC SCH (22:40)
[2018-04-16 06:22] LABS: BASOPHILS % (AUTO) 0.2 % (0.2-1.0); EOSINOPHILS # (AUTO) 0.2 x10^3/uL (0.0-0.2); EOSINOPHILS % (AUTO) 1.6 % (0.9-2.9); HEMATOCRIT 30.1 % (36.0-47.0); HEMOGLOBIN 10.6 g/dL (12.0-16.0); LYMPHOCYTES # (AUTO) 3.6 X10^3/uL (1.3-2.9); LYMPHOCYTES % (AUTO) 38.5 % (21.0-51.0); MEAN CORPUSCULAR HEMOGLOBIN 29.5 pg (27.0-34.0); MEAN CORPUSCULAR HGB CONC 35.3 g/dL (33.0-35.0); MEAN CORPUSCULAR VOLUME 83.4 fL (80.0-100.0); MEAN PLATELET VOLUME 9.4 fL (7.4-11.0); MONOCYTES # (AUTO) 0.8 x10^3/uL (0.3-0.8); MONOCYTES % (AUTO) 8.1 % (0.0-13.0); NEUTROPHILS # (AUTO) 4.8 x10^3/uL (2.2-4.8); NEUTROPHILS % (AUTO) 51.6 % (42.0-75.0); PLATELET COUNT 291 X10^3/uL (150.0-450.0); RED BLOOD COUNT 3.61 X10^6/uL (3.5-5.4); RED CELL DISTRIBUTION WIDTH 12.7 % (11.6-16.5); WHITE BLOOD COUNT 9.4 X10^3/uL (3.6-10.0)
[2018-04-16 07:31] LABS: ALANINE AMINOTRANSFERASE 17 Units/L (12-78); ALBUMIN 3.1 g/dL (3.4-5.0); ALKALINE PHOSPHATASE 43 Units/L (46-116); ASPARTATE AMINO TRANSFERASE 22 Units/L (15-37); BLOOD UREA NITROGEN 28 mg/dL (7-18); CALCIUM 7.8 mg/dL (8.5-10.1); CARBON DIOXIDE 28.1 mmol/L (21-32); CHLORIDE 102 mmol/L (98-107); COR CA(FOR HYPOALB) 8.5 mg/dL (8.5-10.1); CREATININE 1.29 mg/dL (0.55-1.02); SODIUM 138 mmol/L (136-145); TOTAL PROTEIN 6.3 g/dL (6.4-8.2); eGFR BLACK RACES 51 (>60); eGFR NON BLACK RACES 42 (>60)
[2018-04-16] MEDS: ASPIRIN EC 81 MG PO SCH (08:15)
[2018-04-16] MEDS: PriLOSEC PO SCH (08:15)
[2018-04-16] MEDS: PLAVIX PO SCH (08:15)
[2018-04-16] MEDS: TRICOR TAB 160 MG PO SCH (08:16)
[2018-04-16] MEDS: ZyrTEC TAB 10 MG PO SCH (08:16)
[2018-04-16] MEDS: ROCEPHIN 1 GM IV PREMIX 1 GM/50 ML IV.SOLN. IV SCH (08:16)
--- NOTE | 2018-04-16 11:12 | PCM.PROG ---
Progress Note - Progress Note for Day of Date: 04/16/18 - Subjective Subjective: 78 WF ER ADMISSION ON 04/09 WITH INTRACTABLE VERTIGO, N/V. PT HAS BEEN ON ORAL MECLIZINE WITH GENTLE HYDRATION AND ANTIEMETICS WITH PT AND GRADUAL IMPROVEMENT. PT SITTING UP IN CHAIR THIS AM, COMPLETED BREAKFAST, DENIES ANY PAIN FAMILY AT BEDSIDE. DENIES SOB OR CP THIS AM. PT HAS CO MILD GENERALIZED WEAKNESS CONTINUED. HAS HAD LOWER BLOOD SUGAR SINCE STOPPING SOLU MEDROL, D/C LANTUS. DISCUSSED DC HOME Q AM WITH HH AND PHYSICAL THERAPY IN THE HOME - Past Medical Family Social History Past Med/Fam/Surg Hx: No changes since H&P Allergies: Allergies codeine Allergy (Verified 04/09/18 08:16) - Review of Systems ROS: No change since H&P - Vital Signs and I&O's Vital Signs: Temperature 97.3 F Pulse Rate [Right Brachial] 80 Pulse Rate [Left Radial] 74 Pulse Rate 66 Respiratory Rate 20 Blood Pressure [Left Arm] 148/69 Blood Pressure [Right Arm] 135/83 Blood Pressure 133/63 O2 Sat by Pulse Oximetry 100 Intake and Output: Intake & Output 04/13/18 04/14/18 04/15/18 04/16/18 11:59 11:59 11:59 11:59 Intake Total 1010 1610 1200 1320 Balance 1010 1610 1200 1320 - Physical Exam Oriented: Normal Eyes: Normal Ear: Normal Nose: Normal Throat: Normal Respiratory: Normal Cardiovascular: Normal. negative: Edema : Normal Auscultation: Bowel Sounds: Normal Tenderness: Normal Skin: Decreased Turgur Musculoskeletal: Back:Thoracic, Back:Lumbar Psychiatric: Anxiety Affect: Anxious Speech Pattern: Clear, Appropriate - Laboratory and Diagnostics Result Diagrams: 04/16/18 04:09 04/16/18 04:09 Labs: Laboratory WBC 9.4 X10^3/uL (3.6-10.0) 04/16/18 04:09 RBC 3.61 X10^6/uL (3.5-5.4) 04/16/18 04:09 Hgb 10.6 g/dL (12.0-16.0) L 04/16/18 04:09 Hct 30.1 % (36.0-47.0) L 04/16/18 04:09 MCV 83.4 fL (80.0-100.0) 04/16/18 04:09 MCH 29.5 pg (27.0-34.0) 04/16/18 04:09 MCHC 35.3 g/dL (33.0-35.0) H 04/16/18 04:09 RDW 12.7 % (11.6-16.5) 04/16/18 04:09 Plt Count 291 X10^3/uL (150.0-450.0) 04/16/18 04:09 MPV 9.4 fL (7.4-11.0) 04/16/18 04:09 Neut % (Auto) 51.6 % (42.0-75.0) 04/16/18 04:09 Lymph % (Auto) 38.5 % (21.0-51.0) 04/16/18 04:09 [place] % (Auto) 8.1 % (0.0-13.0) 04/16/18 04:09 Eos % (Auto) 1.6 % (0.9-2.9) 04/16/18 04:09 Baso % (Auto) 0.2 % (0.2-1.0) 04/16/18 04:09 Neut # (Auto) 4.8 x10^3/uL (2.2-4.8) 04/16/18 04:09 Lymph # (Auto) 3.6 X10^3/uL (1.3-2.9) H 04/16/18 04:09 [place] # (Auto) 0.8 x10^3/uL (0.3-0.8) 04/16/18 04:09 Eos # (Auto) 0.2 x10^3/uL (0.0-0.2) 04/16/18 04:09 Baso # (Auto) 0.0 X10^3/uL (0.0-0.1) 04/16/18 04:09 Absolute Nucleated RBC 0.0 /100WBC 04/16/18 04:09 Sodium 138 mmol/L (136-145) 04/16/18 04:09 Corrected Sodium TNP 04/16/18 04:09 Potassium 4.3 mmol/L (3.5-5.1) 04/16/18 04:09 Chloride 102 mmol/L (98-107) 04/16/18 04:09 Carbon Dioxide 28.1 mmol/L (21-32) 04/16/18 04:09 BUN 28 mg/dL (7-18) H 04/16/18 04:09 Creatinine 1.29 mg/dL (0.55-1.02) H 04/16/18 04:09 Est GFR (MDRD) Af Amer 51 (>60) L 04/16/18 04:09 Est GFR (MDRD) Non-Af 42 (>60) L 04/16/18 04:09 Glucose 109 mg/dL (65-99) H 04/16/18 04:09 POC Glucose (mg/dL) 109 mg/dL (65-99) H 04/16/18 05:39 Calcium 7.8 mg/dL (8.5-10.1) L 04/16/18 04:09 Corrected Calcium 8.5 mg/dL (8.5-10.1) 04/16/18 04:09 Magnesium 1.7 mg/dL (1.7-2.9) 04/09/18 09:00 Iron 64 ug/dL (50-175) 04/11/18 04:09 Transferrin 244 mg/dL (202-364) 04/11/18 04:09 Ferritin 138 ng/mL (8-252) 04/11/18 04:09 Total Bilirubin 0.20 mg/dL (0.2-1.0) 04/16/18 04:09 AST 22 Units/L (15-37) 04/16/18 04:09 ALT 17 Units/L (12-78) 04/16/18 04:09 Alkaline Phosphatase 43 Units/L (46-116) L 04/16/18 04:09 Total Protein 6.3 g/dL (6.4-8.2) L 04/16/18 04:09 Albumin 3.1 g/dL (3.4-5.0) L 04/16/18 04:09 Globulin 3.2 g/dL (2.5-4.5) 04/16/18 04:09 Albumin/Globulin Ratio 1.0 Ratio (1.1-2.1) L 04/16/18 04:09 Vitamin B12 657 pg/mL (193-986) 04/11/18 04:09 Folate 17.2 ng/mL (>8.6) 04/11/18 04:09 Thyroxine (T4) 8.5 ug/dL (4.7-13.3) 04/09/18 09:00 TSH 3rd Generation 3.426 uIU/mL (0.358-3.74) 04/09/18 09:00 Salicylates 5.8 mg/dL (2.8-20) 04/10/18 15:34 - Plan (1) Vertigo of central origin Status: Acute Plan: CONTINUE ANTIVERT PO. CONTINUE NAUSEA CONTROL, PHYSICAL THERAPY. GENTLE HYDRATION. BLOOD SUGAR CONTROL AND BP MONITORING. REPEAT AM LABS (2) Dizziness Status: Acute Plan: IMPROVING, CONTINUE PT (3) Diabetes Status: Acute (4) History of CVA (cerebrovascular accident) Status: Acute (5) N&V (nausea and vomiting) Status: Acute
[2018-04-16] MEDS: SNACK - Diabetic Appropriate PO SCH (19:22)
[2018-04-16] MEDS ORDERED: MILK OF MAGNESIA PO PRN (19:31)
[2018-04-16] MEDS: COLACE CAP 100 MG PO SCH ×2 (21:32→21:33)
[2018-04-16] MEDS: ZOCOR TAB 20 MG PO SCH (21:33)
[2018-04-16] MEDS: ZANAFLEX PO PRN (21:33)
[2018-04-16] MEDS: ANTIVERT TAB 25 MG PO PRN (21:33)
[2018-04-16] MEDS: NORVASC TAB 5 MG PO SCH (21:33)
[2018-04-16] MEDS: HumuLIN R SUBCUT PRN (21:34)
[2018-04-17 06:10] LABS: BASOPHILS % (AUTO) 0.5 % (0.2-1.0); EOSINOPHILS # (AUTO) 0.2 x10^3/uL (0.0-0.2); EOSINOPHILS % (AUTO) 2.6 % (0.9-2.9); HEMATOCRIT 30.6 % (36.0-47.0); HEMOGLOBIN 10.6 g/dL (12.0-16.0); LYMPHOCYTES % (AUTO) 34.3 % (21.0-51.0); MEAN CORPUSCULAR HEMOGLOBIN 29.1 pg (27.0-34.0); MEAN CORPUSCULAR HGB CONC 34.8 g/dL (33.0-35.0); MEAN CORPUSCULAR VOLUME 83.5 fL (80.0-100.0); MEAN PLATELET VOLUME 9.4 fL (7.4-11.0); MONOCYTES # (AUTO) 0.9 x10^3/uL (0.3-0.8); MONOCYTES % (AUTO) 9.9 % (0.0-13.0); NEUTROPHILS # (AUTO) 4.6 x10^3/uL (2.2-4.8); NEUTROPHILS % (AUTO) 52.7 % (42.0-75.0); PLATELET COUNT 321 X10^3/uL (150.0-450.0); RED BLOOD COUNT 3.66 X10^6/uL (3.5-5.4); RED CELL DISTRIBUTION WIDTH 12.7 % (11.6-16.5); WHITE BLOOD COUNT 8.8 X10^3/uL (3.6-10.0)
[2018-04-17 06:22] LABS: ALBUMIN 3.2 g/dL (3.4-5.0); CALCIUM 8.1 mg/dL (8.5-10.1); CARBON DIOXIDE 29.6 mmol/L (21-32); COR CA(FOR HYPOALB) 8.7 mg/dL (8.5-10.1); CREATININE 1.25 mg/dL (0.55-1.02); TOTAL PROTEIN 6.5 g/dL (6.4-8.2)
[2018-04-17] MEDS: PriLOSEC PO SCH (08:30)
[2018-04-17] MEDS: ZyrTEC TAB 10 MG PO SCH (08:31)
[2018-04-17] MEDS: TRICOR TAB 160 MG PO SCH (08:31)
[2018-04-17] MEDS: ASPIRIN EC 81 MG PO SCH (08:31)
[2018-04-17] MEDS: ROCEPHIN 1 GM IV PREMIX 1 GM/50 ML IV.SOLN. IV SCH (08:32)
[2018-04-17] MEDS: PLAVIX PO SCH (08:32)
[2018-04-17] MEDS: NS 1000 ML 1,000 ML IV SCH ×3 (08:33→16:41)
[2018-04-17] MEDS: HumuLIN R SUBCUT PRN ×3 (12:38→20:34)
[2018-04-17] MEDS ORDERED: KLONOPIN TAB 0.5 MG PO PRN (13:16)
--- NOTE | 2018-04-17 17:59 | PCM.PROG ---
Progress Note - Progress Note for Day of Date: 04/17/18 - Subjective Subjective: 78 WF ER ADMISSION ON 04/09 WITH INTRACTABLE VERTIGO, N/V. PT HAS BEEN ON ORAL MECLIZINE WITH GENTLE HYDRATION AND ANTIEMETICS WITH PT AND GRADUAL IMPROVEMENT. PT SITTING UP IN CHAIR THIS AM, COMPLETED BREAKFAST, DENIES ANY PAIN FAMILY AT BEDSIDE. DENIES SOB OR CP THIS AM. PT HAS CO MILD GENERALIZED WEAKNESS CONTINUED. DISCUSSED WITH FAMILY OPTIONS FOR REHAB THERAPY. - Past Medical Family Social History Past Med/Fam/Surg Hx: No changes since H&P Allergies: Allergies codeine Allergy (Verified 04/09/18 08:16) - Review of Systems ROS: No change since H&P - Vital Signs and I&O's Vital Signs: Temperature 98.4 F Pulse Rate [Right Brachial] 84 Pulse Rate [Left Radial] 89 Pulse Rate 66 Respiratory Rate 20 Blood Pressure [Left Arm] 157/65 Blood Pressure [Right Arm] 135/83 Blood Pressure 133/63 O2 Sat by Pulse Oximetry 98 Intake and Output: Intake & Output 04/15/18 04/16/18 04/17/18 04/18/18 11:59 11:59 11:59 11:59 Intake Total 1200 1320 1770 600 Output Total 300 1000 Balance 1200 1320 1470 -400 - Physical Exam Oriented: Normal Eyes: Normal Ear: Normal Nose: Normal Throat: Normal Respiratory: Normal Cardiovascular: Normal. negative: Edema : Normal Auscultation: Bowel Sounds: Normal Tenderness: Normal Skin: Decreased Turgur Musculoskeletal: Back:Thoracic, Back:Lumbar Psychiatric: Anxiety Affect: Anxious Speech Pattern: Clear, Appropriate - Laboratory and Diagnostics Result Diagrams: 04/17/18 04:09 04/17/18 04:09 Labs: Laboratory WBC 8.8 X10^3/uL (3.6-10.0) 04/17/18 04:09 RBC 3.66 X10^6/uL (3.5-5.4) 04/17/18 04:09 Hgb 10.6 g/dL (12.0-16.0) L 04/17/18 04:09 Hct 30.6 % (36.0-47.0) L 04/17/18 04:09 MCV 83.5 fL (80.0-100.0) 04/17/18 04:09 MCH 29.1 pg (27.0-34.0) 04/17/18 04:09 MCHC 34.8 g/dL (33.0-35.0) 04/17/18 04:09 RDW 12.7 % (11.6-16.5) 04/17/18 04:09 Plt Count 321 X10^3/uL (150.0-450.0) 04/17/18 04:09 MPV 9.4 fL (7.4-11.0) 04/17/18 04:09 Neut % (Auto) 52.7 % (42.0-75.0) 04/17/18 04:09 Lymph % (Auto) 34.3 % (21.0-51.0) 04/17/18 04:09 Mason % (Auto) 9.9 % (0.0-13.0) 04/17/18 04:09 Eos % (Auto) 2.6 % (0.9-2.9) 04/17/18 04:09 Baso % (Auto) 0.5 % (0.2-1.0) 04/17/18 04:09 Neut # (Auto) 4.6 x10^3/uL (2.2-4.8) 04/17/18 04:09 Lymph # (Auto) 3.0 X10^3/uL (1.3-2.9) H 04/17/18 04:09 Mason # (Auto) 0.9 x10^3/uL (0.3-0.8) H 04/17/18 04:09 Eos # (Auto) 0.2 x10^3/uL (0.0-0.2) 04/17/18 04:09 Baso # (Auto) 0.0 X10^3/uL (0.0-0.1) 04/17/18 04:09 Absolute Nucleated RBC 0.0 /100WBC 04/17/18 04:09 Sodium 137 mmol/L (136-145) 04/17/18 04:09 Corrected Sodium 138 mmol/L (136-145) 04/17/18 04:09 Potassium 4.4 mmol/L (3.5-5.1) 04/17/18 04:09 Chloride 101 mmol/L (98-107) 04/17/18 04:09 Carbon Dioxide 29.6 mmol/L (21-32) 04/17/18 04:09 BUN 27 mg/dL (7-18) H 04/17/18 04:09 Creatinine 1.25 mg/dL (0.55-1.02) H 04/17/18 04:09 Est GFR (MDRD) Af Amer 53 (>60) L 04/17/18 04:09 Est GFR (MDRD) Non-Af 44 (>60) L 04/17/18 04:09 Glucose 160 mg/dL (65-99) H 04/17/18 04:09 POC Glucose (mg/dL) 272 mg/dL (65-99) H 04/17/18 16:32 Calcium 8.1 mg/dL (8.5-10.1) L 04/17/18 04:09 Corrected Calcium 8.7 mg/dL (8.5-10.1) 04/17/18 04:09 Magnesium 1.7 mg/dL (1.7-2.9) 04/09/18 09:00 Iron 64 ug/dL (50-175) 04/11/18 04:09 Transferrin 244 mg/dL (202-364) 04/11/18 04:09 Ferritin 138 ng/mL (8-252) 04/11/18 04:09 Total Bilirubin 0.20 mg/dL (0.2-1.0) 04/17/18 04:09 AST 25 Units/L (15-37) 04/17/18 04:09 ALT 31 Units/L (12-78) 04/17/18 04:09 Alkaline Phosphatase 44 Units/L (46-116) L 04/17/18 04:09 Total Protein 6.5 g/dL (6.4-8.2) 04/17/18 04:09 Albumin 3.2 g/dL (3.4-5.0) L 04/17/18 04:09 Globulin 3.3 g/dL (2.5-4.5) 04/17/18 04:09 Albumin/Globulin Ratio 1.0 Ratio (1.1-2.1) L 04/17/18 04:09 Vitamin B12 657 pg/mL (193-986) 04/11/18 04:09 Folate 17.2 ng/mL (>8.6) 04/11/18 04:09 Thyroxine (T4) 8.5 ug/dL (4.7-13.3) 04/09/18 09:00 TSH 3rd Generation 3.426 uIU/mL (0.358-3.74) 04/09/18 09:00 Salicylates 5.8 mg/dL (2.8-20) 04/10/18 15:34 - Plan (1) Vertigo of central origin Status: Acute Plan: CONTINUE ANTIVERT PO. CONTINUE NAUSEA CONTROL, PHYSICAL THERAPY. GENTLE HYDRATION. BLOOD SUGAR CONTROL AND BP MONITORING. REPEAT AM LABS (2) Dizziness Status: Acute Plan: IMPROVING, CONTINUE PT (3) Diabetes Status: Acute (4) History of CVA (cerebrovascular accident) Status: Acute (5) Weakness Status: Acute Plan: CONSULT CASE MANANAGEMENT FOR REHAB PLACEMENT
[2018-04-17] MEDS: COLACE CAP 100 MG PO SCH (20:36)
[2018-04-17] MEDS: NORVASC TAB 5 MG PO SCH (20:36)
[2018-04-17] MEDS: ZOCOR TAB 20 MG PO SCH (20:37)
[2018-04-17] MEDS: SNACK - Diabetic Appropriate PO SCH (22:16)
[2018-04-18 06:20] LABS: BASOPHILS # (AUTO) 0.2 X10^3/uL (0.0-0.1); BASOPHILS % (AUTO) 1.7 % (0.2-1.0); EOSINOPHILS # (AUTO) 0.3 x10^3/uL (0.0-0.2); EOSINOPHILS % (AUTO) 3.3 % (0.9-2.9); HEMATOCRIT 29.5 % (36.0-47.0); HEMOGLOBIN 10.3 g/dL (12.0-16.0); LYMPHOCYTES # (AUTO) 2.7 X10^3/uL (1.3-2.9); LYMPHOCYTES % (AUTO) 28.9 % (21.0-51.0); MEAN CORPUSCULAR HEMOGLOBIN 29.2 pg (27.0-34.0); MEAN CORPUSCULAR VOLUME 83.5 fL (80.0-100.0); MEAN PLATELET VOLUME 9.6 fL (7.4-11.0); MONOCYTES # (AUTO) 0.9 x10^3/uL (0.3-0.8); MONOCYTES % (AUTO) 9.4 % (0.0-13.0); NEUTROPHILS # (AUTO) 5.3 x10^3/uL (2.2-4.8); NEUTROPHILS % (AUTO) 56.7 % (42.0-75.0); PLATELET COUNT 299 X10^3/uL (150.0-450.0); RED BLOOD COUNT 3.54 X10^6/uL (3.5-5.4); RED CELL DISTRIBUTION WIDTH 12.8 % (11.6-16.5); WHITE BLOOD COUNT 9.3 X10^3/uL (3.6-10.0)
[2018-04-18 06:54] LABS: ALBUMIN 3.3 g/dL (3.4-5.0); CALCIUM 8.2 mg/dL (8.5-10.1); COR CA(FOR HYPOALB) 8.8 mg/dL (8.5-10.1); CREATININE 1.21 mg/dL (0.55-1.02); TOTAL PROTEIN 6.5 g/dL (6.4-8.2)
[2018-04-18] MEDS: PriLOSEC PO SCH (08:15)
[2018-04-18] MEDS: ROCEPHIN 1 GM IV PREMIX 1 GM/50 ML IV.SOLN. IV SCH (08:15)
[2018-04-18] MEDS: TRICOR TAB 160 MG PO SCH (08:16)
[2018-04-18] MEDS: ASPIRIN EC 81 MG PO SCH (08:16)
[2018-04-18] MEDS: PLAVIX PO SCH (08:16)
[2018-04-18] MEDS: ZyrTEC TAB 10 MG PO SCH (08:17)
[2018-04-18 11:22] VITALS: BP 137/82
--- NOTE | 2018-04-19 18:05 | DR.H&P ---
H&P - History & Physical for Day of: H&P Date: 04/09/18 - Chief Complaint Chief Complaint: DIZZINESS, HEADACHE, N/V. - Allergies Allergies/Adverse Reactions: Allergies Allergy/AdvReac Type Severity Reaction Status Date / Time codeine Allergy Verified 04/09/18 08:16 - History of Present Illness History of Present Illness: 78 WF ER ADMISSION ON 04/09 WITH INTRACTABLE VERTIGO , N/V. SUDDEN ONSET WITH DIANE. PT HAS PMH OF CVA, HTN, DM. PT HAD CT HEAD ON ADMISSON IN ER, ADMITTED FOR EVALUATION AND TREATMENT OF ACUTE ILLNESS - Past Medical History Past Medical History: CVA, Diabetes, Dyslipidemia, GERD, Hypertension - Past Surgical History Surgical History: TRIBAL DELEGATE Surgery - Family History Family Medical History: Diabetes Mellitus, Hypertension - Social History Does patient currently use any type of tobacco product: No Have you used tobacco products in the last 12 months: No Type of Tobacco Use: None Does any household member use tobacco: No Alcohol Use: None Drug Use: Prescription Drugs - Medications Home Medications: Aspirin [Aspirin 81 mg Chewtab] 81 mg PO DAILY 04/09/18 [History Confirmed 04/09] Ferrous Sulfate 325 mg PO BID 04/09/18 [History Confirmed 04/09/18] Losartan Potassium [LOSARTAN POTASSIUM 50 MG *] 50 mg PO DAILY 04/09/18 [ History Confirmed 04/09/18] - Review of Systems Constitutional: Weakness Eyes: No Symptoms Reported ENT: No Symptoms Reported Respiratory: No Symptoms Reported Cardiovascular: No Symptoms Reported Gastrointestinal: Nausea, Vomiting Genitourinary: No Symptoms Reported Musculoskeletal: No Symptoms Reported Skin: No Symptoms Reported Neurological: Weakness, Other (DIZZINESS) - Physical Exam Vital Signs: Temperature 98.5 F Pulse Rate [Right Brachial] 87 Pulse Rate [Left Radial] 89 Pulse Rate 66 Respiratory Rate 18 Blood Pressure [Left Arm] 137/82 Blood Pressure [Right Arm] 135/83 Blood Pressure 133/63 O2 Sat by Pulse Oximetry 99 Oriented: Normal Eyes: Blurred Vision Ear: Normal Nose: Normal Throat: Normal Respiratory: Clear Throughout Cardiovascular: Normal : Normal Auscultation: Bowel Sounds: Normal Palpation: Normal Tenderness: Normal Skin: Decreased Turgur Musculoskeletal: Back:Lumbar Psychiatric: Anxiety Affect: Anxious, Hysterical Speech Pattern: Appropriate - Assessment/Plan (1) Vertigo of central origin Status: Acute Plan: ADMIT, CT HEAD ON ADMISSION. EKG, CXR, IV HYDRATION. ADMISSION LABS, REPEAT AM LABS. VERTIGO MEDICAITON, ANTI EMETICS. UA, BLOOD SUGAR CONTROL. MRI BRAIN Q AM, BP MONITORING (2) Dizziness Status: Acute (3) Diabetes Status: Acute (4) History of CVA (cerebrovascular accident) Status: Acute (5) Weakness Status: Acute
--- NOTE | 2018-04-19 18:11 | DR.UPDATE ---
H&P Update History and Physical Update: History and Physical reviewed and patient examined. H & P ON 04/09/2018 Yes with the following:RESOLVED INTRACTABLE DIZZINESS WITH N/V
== END 2018-04-18 15:30 | disposition swing bed (61) | DRG 103 ==
LOC: ER 08:13 → MED/SURG 11:22 → OBSVTOIN 04-11 12:00 → MED/SURG 04-18 16:05
PROVIDERS: ADMIT Internal Medicine; ATTEND Internal Medicine
DX: R51 Headache (principal); R42 Dizziness and giddiness; R11.2 Nausea with vomiting, unspecified; I10 Essential (primary) hypertension; E11.65 Type 2 diabetes mellitus with hyperglycemia; E78.2 Mixed hyperlipidemia; K21.9 Gastro-esophageal reflux disease without esophagitis; R53.1 Weakness; Z86.73 Personal history of transient ischemic attack (TIA), and cerebral infarction without residual deficits; R26.89 Other abnormalities of gait and mobility
CPT/HCPCS: 36415; 70450; 70551; 72125; 80053; 80307; 82607; 82728; 82746; 83540; 83735; 84436; 84443; 84466; 85025; 93880; 94760; 96365; 96374; 96375; 97535; 99283; 99284; A4216; A4222; G8978; G8979; G0378; G6038; J0696; J1170; J1200; J1815; J1940; J2405; J2550; J2920; J2930

== ENCOUNTER 2018-04-18 15:30 | Inpatient (IN) ==
[2018-04-18] MEDS ORDERED: MILK OF MAGNESIA PO PRN (16:30)
[2018-04-18] MEDS: HumuLIN R SUBCUT PRN (16:32)
[2018-04-18 16:42] VITALS: BMI 20.3
[2018-04-18] MEDS: ZOCOR TAB 20 MG PO SCH (20:21)
[2018-04-18] MEDS: COLACE CAP 100 MG PO SCH (20:21)
[2018-04-18] MEDS: NORVASC TAB 5 MG PO SCH (20:21)
[2018-04-18] MEDS: ANTIVERT TAB 25 MG PO SCH (21:17)
[2018-04-19] MEDS: ANTIVERT TAB 25 MG PO SCH ×3 (05:34→21:27)
[2018-04-19] MEDS: ASPIRIN EC 81 MG PO SCH (09:47)
[2018-04-19] MEDS: PriLOSEC PO SCH (09:47)
[2018-04-19] MEDS: PLAVIX PO SCH (09:47)
[2018-04-19] MEDS: ZyrTEC TAB 10 MG PO SCH (09:48)
[2018-04-19] MEDS: TRICOR TAB 160 MG PO SCH (09:48)
[2018-04-19] MEDS: KLONOPIN TAB 0.5 MG PO PRN ×2 (11:28→23:25)
[2018-04-19] MEDS: HumuLIN R SUBCUT PRN (21:25)
[2018-04-19] MEDS: ZOCOR TAB 20 MG PO SCH (21:27)
[2018-04-19] MEDS: COLACE CAP 100 MG PO SCH (21:27)
[2018-04-19] MEDS: NORVASC TAB 5 MG PO SCH (21:27)
[2018-04-20] MEDS: ANTIVERT TAB 25 MG PO SCH ×3 (05:44→21:04)
[2018-04-20 06:15] LABS: BASOPHILS % (AUTO) 0.4 % (0.2-1.0); EOSINOPHILS # (AUTO) 0.2 x10^3/uL (0.0-0.2); EOSINOPHILS % (AUTO) 1.7 % (0.9-2.9); HEMATOCRIT 31.4 % (36.0-47.0); HEMOGLOBIN 10.9 g/dL (12.0-16.0); LYMPHOCYTES # (AUTO) 2.2 X10^3/uL (1.3-2.9); LYMPHOCYTES % (AUTO) 21.8 % (21.0-51.0); MEAN CORPUSCULAR HEMOGLOBIN 29.2 pg (27.0-34.0); MEAN CORPUSCULAR HGB CONC 34.6 g/dL (33.0-35.0); MEAN CORPUSCULAR VOLUME 84.3 fL (80.0-100.0); MEAN PLATELET VOLUME 9.1 fL (7.4-11.0); MONOCYTES # (AUTO) 1.5 x10^3/uL (0.3-0.8); MONOCYTES % (AUTO) 14.8 % (0.0-13.0); NEUTROPHILS # (AUTO) 6.1 x10^3/uL (2.2-4.8); NEUTROPHILS % (AUTO) 61.3 % (42.0-75.0); PLATELET COUNT 304 X10^3/uL (150.0-450.0); RED BLOOD COUNT 3.73 X10^6/uL (3.5-5.4); RED CELL DISTRIBUTION WIDTH 12.8 % (11.6-16.5)
[2018-04-20 06:37] LABS: ALBUMIN 3.3 g/dL (3.4-5.0); CALCIUM 8.1 mg/dL (8.5-10.1); CARBON DIOXIDE 26.5 mmol/L (21-32); COR CA(FOR HYPOALB) 8.7 mg/dL (8.5-10.1); CREATININE 1.34 mg/dL (0.55-1.02); TOTAL PROTEIN 6.9 g/dL (6.4-8.2)
[2018-04-20] MEDS: ASPIRIN EC 81 MG PO SCH (08:23)
[2018-04-20] MEDS: PriLOSEC PO SCH (08:23)
[2018-04-20] MEDS: ZyrTEC TAB 10 MG PO SCH (08:23)
[2018-04-20] MEDS: TRICOR TAB 160 MG PO SCH (08:23)
[2018-04-20] MEDS: PLAVIX PO SCH (08:24)
[2018-04-20] MEDS: NORVASC TAB 5 MG PO SCH (21:03)
[2018-04-20] MEDS: COLACE CAP 100 MG PO SCH (21:03)
[2018-04-20] MEDS: ZOCOR TAB 20 MG PO SCH (21:04)
[2018-04-20] MEDS: HumuLIN R SUBCUT PRN (22:19)
[2018-04-21] MEDS ORDERED: TYLENOL 325 MG TAB PO PRN (02:27)
[2018-04-21] MEDS: ANTIVERT TAB 25 MG PO SCH ×3 (06:07→22:00)
[2018-04-21] MEDS: TRICOR TAB 160 MG PO SCH (08:46)
[2018-04-21] MEDS: ZyrTEC TAB 10 MG PO SCH (08:46)
[2018-04-21] MEDS: PriLOSEC PO SCH (08:46)
[2018-04-21] MEDS: PLAVIX PO SCH (08:46)
[2018-04-21] MEDS: ASPIRIN EC 81 MG PO SCH (08:46)
[2018-04-21] MEDS: HumuLIN R SUBCUT PRN (11:15)
[2018-04-21] MEDS: NORVASC TAB 5 MG PO SCH (20:56)
[2018-04-21] MEDS: COLACE CAP 100 MG PO SCH (20:56)
[2018-04-21] MEDS: ZOCOR TAB 20 MG PO SCH (20:57)
[2018-04-22] MEDS: ANTIVERT TAB 25 MG PO SCH ×3 (05:09→22:03)
[2018-04-22] MEDS: PriLOSEC PO SCH (09:33)
[2018-04-22] MEDS: ASPIRIN EC 81 MG PO SCH (09:33)
[2018-04-22] MEDS: ZyrTEC TAB 10 MG PO SCH (09:33)
[2018-04-22] MEDS: TRICOR TAB 160 MG PO SCH (09:33)
[2018-04-22] MEDS: PLAVIX PO SCH (09:33)
[2018-04-22] MEDS: KLONOPIN TAB 0.5 MG PO PRN (10:37)
[2018-04-22] MEDS: HumuLIN R SUBCUT PRN ×2 (12:01→17:15)
[2018-04-22] MEDS: COLACE CAP 100 MG PO SCH (20:52)
[2018-04-22] MEDS: NORVASC TAB 5 MG PO SCH (20:52)
[2018-04-22] MEDS: ZOCOR TAB 20 MG PO SCH (20:52)
[2018-04-23] MEDS: ANTIVERT TAB 25 MG PO SCH ×3 (06:12→21:29)
[2018-04-23] MEDS: TRICOR TAB 160 MG PO SCH (09:16)
[2018-04-23] MEDS: ASPIRIN EC 81 MG PO SCH (09:16)
[2018-04-23] MEDS: ZyrTEC TAB 10 MG PO SCH (09:16)
[2018-04-23] MEDS: PriLOSEC PO SCH (09:16)
[2018-04-23] MEDS: PLAVIX PO SCH (09:17)
[2018-04-23] MEDS: HumuLIN R SUBCUT PRN ×3 (12:10→21:30)
[2018-04-23] MEDS: COLACE CAP 100 MG PO SCH (21:28)
[2018-04-23] MEDS: KLONOPIN TAB 0.5 MG PO PRN (21:29)
[2018-04-23] MEDS: ZOCOR TAB 20 MG PO SCH (21:29)
[2018-04-23] MEDS: NORVASC TAB 5 MG PO SCH (21:31)
[2018-04-24 05:20] LABS: BASOPHILS % (AUTO) 0.8 % (0.2-1.0); EOSINOPHILS # (AUTO) 0.2 x10^3/uL (0.0-0.2); EOSINOPHILS % (AUTO) 3.9 % (0.9-2.9); HEMATOCRIT 28.3 % (36.0-47.0); HEMOGLOBIN 10.1 g/dL (12.0-16.0); LYMPHOCYTES # (AUTO) 1.4 X10^3/uL (1.3-2.9); LYMPHOCYTES % (AUTO) 24.1 % (21.0-51.0); MEAN CORPUSCULAR HEMOGLOBIN 29.2 pg (27.0-34.0); MEAN CORPUSCULAR HGB CONC 35.5 g/dL (33.0-35.0); MEAN CORPUSCULAR VOLUME 82.2 fL (80.0-100.0); MEAN PLATELET VOLUME 8.7 fL (7.4-11.0); MONOCYTES # (AUTO) 0.7 x10^3/uL (0.3-0.8); MONOCYTES % (AUTO) 11.8 % (0.0-13.0); NEUTROPHILS # (AUTO) 3.6 x10^3/uL (2.2-4.8); NEUTROPHILS % (AUTO) 59.4 % (42.0-75.0); PLATELET COUNT 316 X10^3/uL (150.0-450.0); RED BLOOD COUNT 3.44 X10^6/uL (3.5-5.4); RED CELL DISTRIBUTION WIDTH 12.6 % (11.6-16.5)
[2018-04-24 05:33] LABS: CALCIUM 8.2 mg/dL (8.5-10.1); CARBON DIOXIDE 24.9 mmol/L (21-32); CREATININE 1.26 mg/dL (0.55-1.02); TOTAL PROTEIN 6.9 g/dL (6.4-8.2)
[2018-04-24] MEDS: ANTIVERT TAB 25 MG PO SCH ×3 (05:39→21:10)
[2018-04-24] MEDS: PLAVIX PO SCH (09:35)
[2018-04-24] MEDS: ZyrTEC TAB 10 MG PO SCH (09:35)
[2018-04-24] MEDS: ASPIRIN EC 81 MG PO SCH (09:35)
[2018-04-24] MEDS: PriLOSEC PO SCH (09:36)
[2018-04-24] MEDS: TRICOR TAB 160 MG PO SCH (09:36)
[2018-04-24] MEDS: HumuLIN R SUBCUT PRN ×3 (12:06→20:50)
[2018-04-24] MEDS: NORVASC TAB 5 MG PO SCH (20:37)
[2018-04-24] MEDS: COLACE CAP 100 MG PO SCH (20:37)
[2018-04-24] MEDS: KLONOPIN TAB 0.5 MG PO PRN (20:38)
[2018-04-24] MEDS: ZOCOR TAB 20 MG PO SCH (20:38)
[2018-04-25] MEDS: ANTIVERT TAB 25 MG PO SCH ×3 (05:19→21:11)
[2018-04-25] MEDS: PriLOSEC PO SCH (08:12)
[2018-04-25] MEDS: ZyrTEC TAB 10 MG PO SCH (08:12)
[2018-04-25] MEDS: TRICOR TAB 160 MG PO SCH (08:12)
[2018-04-25] MEDS: PLAVIX PO SCH (08:12)
[2018-04-25] MEDS: ASPIRIN EC 81 MG PO SCH (08:13)
--- NOTE | 2018-04-25 18:13 | PCM.PROG ---
Progress Note - Progress Note for Day of Date: 04/25/18 - Subjective Subjective: 78 WF ADMITTED FOR SWING BED PT, CURRENT COOPERATIVE WITH PHYSICAL THERAPY, IMPROVING. LABS STABLE. NO NEW MEDICATION CHANGES. PT REPORTS IMPROVING STRENGTH, "STILL A LITTLE UNSTEADY" - Past Medical Family Social History Past Med/Fam/Surg Hx: No changes since H&P Allergies: Allergies codeine Allergy (Verified 04/09/18 08:16) - Review of Systems ROS: No change since H&P - Vital Signs and I&O's Vital Signs: Temperature 98.3 F Pulse Rate [Left Brachial] 84 Pulse Rate [Left Radial] 85 Respiratory Rate 20 Blood Pressure [Left Arm] 113/58 Blood Pressure [Right Arm] 148/63 Blood Pressure 137/82 O2 Sat by Pulse Oximetry 96 Intake and Output: Intake & Output 04/23/18 04/24/18 04/25/18 04/26/18 11:59 11:59 11:59 11:59 Intake Total 090 654 7532 600 Balance 122 794 2646 600 - Physical Exam Oriented: Normal Eyes: Normal Ear: Normal Nose: Normal Respiratory: Diminished Cardiovascular: Normal : Normal Auscultation: Bowel Sounds: Normal Palpation: Normal Tenderness: Normal Skin: Normal Musculoskeletal: Back:Lumbar Psychiatric: Anxiety Affect: Anxious Speech Pattern: Clear, Appropriate - Laboratory and Diagnostics Result Diagrams: 04/24/18 04:35 04/24/18 04:35 Labs: Laboratory WBC 6.0 X10^3/uL (3.6-10.0) 04/24/18 04:35 RBC 3.44 X10^6/uL (3.5-5.4) L 04/24/18 04:35 Hgb 10.1 g/dL (12.0-16.0) L 04/24/18 04:35 Hct 28.3 % (36.0-47.0) L 04/24/18 04:35 MCV 82.2 fL (80.0-100.0) 04/24/18 04:35 MCH 29.2 pg (27.0-34.0) 04/24/18 04:35 MCHC 35.5 g/dL (33.0-35.0) H 04/24/18 04:35 RDW 12.6 % (11.6-16.5) 04/24/18 04:35 Plt Count 316 X10^3/uL (150.0-450.0) 04/24/18 04:35 MPV 8.7 fL (7.4-11.0) 04/24/18 04:35 Neut % (Auto) 59.4 % (42.0-75.0) 04/24/18 04:35 Lymph % (Auto) 24.1 % (21.0-51.0) 04/24/18 04:35 Grant % (Auto) 11.8 % (0.0-13.0) 04/24/18 04:35 Eos % (Auto) 3.9 % (0.9-2.9) H 04/24/18 04:35 Baso % (Auto) 0.8 % (0.2-1.0) 04/24/18 04:35 Neut # (Auto) 3.6 x10^3/uL (2.2-4.8) 04/24/18 04:35 Lymph # (Auto) 1.4 X10^3/uL (1.3-2.9) 04/24/18 04:35 Grant # (Auto) 0.7 x10^3/uL (0.3-0.8) 04/24/18 04:35 Eos # (Auto) 0.2 x10^3/uL (0.0-0.2) 04/24/18 04:35 Baso # (Auto) 0.0 X10^3/uL (0.0-0.1) 04/24/18 04:35 Absolute Nucleated RBC 0.0 /100WBC 04/24/18 04:35 Sodium 133 mmol/L (136-145) L 04/24/18 04:35 Corrected Sodium 134 mmol/L (136-145) L 04/24/18 04:35 Potassium 3.9 mmol/L (3.5-5.1) 04/24/18 04:35 Chloride 99 mmol/L (98-107) 04/24/18 04:35 Carbon Dioxide 24.9 mmol/L (21-32) 04/24/18 04:35 BUN 14 mg/dL (7-18) 04/24/18 04:35 Creatinine 1.26 mg/dL (0.55-1.02) H 04/24/18 04:35 Est GFR (MDRD) Af Amer 53 (>60) L 04/24/18 04:35 Est GFR (MDRD) Non-Af 43 (>60) L 04/24/18 04:35 Glucose 130 mg/dL (65-99) H 04/24/18 04:35 POC Glucose (mg/dL) 144 mg/dL (65-99) H 04/25/18 16:05 Calcium 8.2 mg/dL (8.5-10.1) L 04/24/18 04:35 Corrected Calcium 9.0 mg/dL (8.5-10.1) 04/24/18 04:35 Total Bilirubin 0.50 mg/dL (0.2-1.0) 04/24/18 04:35 AST 29 Units/L (15-37) 04/24/18 04:35 ALT 35 Units/L (12-78) 04/24/18 04:35 Alkaline Phosphatase 51 Units/L (46-116) 04/24/18 04:35 Total Protein 6.9 g/dL (6.4-8.2) 04/24/18 04:35 Albumin 3.0 g/dL (3.4-5.0) L 04/24/18 04:35 Globulin 3.9 g/dL (2.5-4.5) 04/24/18 04:35 Albumin/Globulin Ratio 0.8 Ratio (1.1-2.1) L 04/24/18 04:35 - Plan (1) Weakness Status: Acute Plan: CONTINUE WITH PHYSICAL THERAPY, ROUTINE LABS. BP AND BLOOD SUGAR MONITROING (2) Diabetes Status: Acute (3) History of CVA (cerebrovascular accident) Status: Acute (4) Vertigo of central origin Status: Acute
[2018-04-25] MEDS: KLONOPIN TAB 0.5 MG PO PRN (21:11)
[2018-04-25] MEDS: COLACE CAP 100 MG PO SCH (21:11)
[2018-04-25] MEDS: ZOCOR TAB 20 MG PO SCH (21:11)
[2018-04-25] MEDS: NORVASC TAB 5 MG PO SCH (21:12)
[2018-04-25] MEDS: HumuLIN R SUBCUT PRN (22:20)
[2018-04-26] MEDS: ANTIVERT TAB 25 MG PO SCH ×3 (06:24→21:02)
[2018-04-26] MEDS: PriLOSEC PO SCH (09:30)
[2018-04-26] MEDS: PLAVIX PO SCH (09:30)
[2018-04-26] MEDS: ASPIRIN EC 81 MG PO SCH (09:30)
[2018-04-26] MEDS: ZyrTEC TAB 10 MG PO SCH (09:30)
[2018-04-26] MEDS: TRICOR TAB 160 MG PO SCH (09:30)
[2018-04-26] MEDS: ZOCOR TAB 20 MG PO SCH (21:02)
[2018-04-26] MEDS: COLACE CAP 100 MG PO SCH (21:02)
[2018-04-26] MEDS: KLONOPIN TAB 0.5 MG PO PRN (21:02)
[2018-04-26] MEDS: NORVASC TAB 5 MG PO SCH (21:03)
[2018-04-27 05:05] LABS: BASOPHILS % (AUTO) 0.9 % (0.2-1.0); EOSINOPHILS # (AUTO) 0.2 x10^3/uL (0.0-0.2); EOSINOPHILS % (AUTO) 4.4 % (0.9-2.9); HEMATOCRIT 27.5 % (36.0-47.0); HEMOGLOBIN 9.7 g/dL (12.0-16.0); LYMPHOCYTES # (AUTO) 1.4 X10^3/uL (1.3-2.9); LYMPHOCYTES % (AUTO) 31.7 % (21.0-51.0); MEAN CORPUSCULAR HEMOGLOBIN 29.1 pg (27.0-34.0); MEAN CORPUSCULAR HGB CONC 35.1 g/dL (33.0-35.0); MEAN CORPUSCULAR VOLUME 82.9 fL (80.0-100.0); MEAN PLATELET VOLUME 7.9 fL (7.4-11.0); MONOCYTES # (AUTO) 0.5 x10^3/uL (0.3-0.8); MONOCYTES % (AUTO) 10.6 % (0.0-13.0); NEUTROPHILS # (AUTO) 2.3 x10^3/uL (2.2-4.8); NEUTROPHILS % (AUTO) 52.4 % (42.0-75.0); PLATELET COUNT 356 X10^3/uL (150.0-450.0); RED BLOOD COUNT 3.32 X10^6/uL (3.5-5.4); RED CELL DISTRIBUTION WIDTH 12.2 % (11.6-16.5); WHITE BLOOD COUNT 4.4 X10^3/uL (3.6-10.0)
[2018-04-27 05:19] LABS: CALCIUM 8.2 mg/dL (8.5-10.1); CARBON DIOXIDE 28.7 mmol/L (21-32); CREATININE 1.19 mg/dL (0.55-1.02); TOTAL PROTEIN 6.7 g/dL (6.4-8.2)
[2018-04-27] MEDS: ANTIVERT TAB 25 MG PO SCH ×3 (05:53→21:28)
[2018-04-27] MEDS: ZyrTEC TAB 10 MG PO SCH (09:00)
[2018-04-27] MEDS: PriLOSEC PO SCH (09:00)
[2018-04-27] MEDS: TRICOR TAB 160 MG PO SCH (09:00)
[2018-04-27] MEDS: ASPIRIN EC 81 MG PO SCH (09:00)
[2018-04-27] MEDS: PLAVIX PO SCH (09:00)
[2018-04-27] MEDS: HumuLIN R SUBCUT PRN ×2 (16:07→21:28)
[2018-04-27] MEDS: COLACE CAP 100 MG PO SCH (21:27)
[2018-04-27] MEDS: NORVASC TAB 5 MG PO SCH (21:28)
[2018-04-27] MEDS: ZOCOR TAB 20 MG PO SCH (21:28)
[2018-04-27] MEDS: KLONOPIN TAB 0.5 MG PO PRN (21:29)
[2018-04-28] MEDS: TRICOR TAB 160 MG PO SCH (09:00)
[2018-04-28] MEDS: PLAVIX PO SCH (09:00)
[2018-04-28] MEDS: ZyrTEC TAB 10 MG PO SCH (09:00)
[2018-04-28] MEDS: PriLOSEC PO SCH (09:00)
[2018-04-28] MEDS: ASPIRIN EC 81 MG PO SCH (09:00)
[2018-04-28] MEDS: HumuLIN R SUBCUT PRN ×3 (11:30→17:12)
[2018-04-28] MEDS: ANTIVERT TAB 25 MG PO SCH ×3 (13:00→21:06)
[2018-04-28] MEDS: ZOCOR TAB 20 MG PO SCH (20:41)
[2018-04-28] MEDS: COLACE CAP 100 MG PO SCH (20:41)
[2018-04-28] MEDS: NORVASC TAB 5 MG PO SCH (20:41)
[2018-04-29] MEDS: ANTIVERT TAB 25 MG PO SCH ×3 (05:20→21:06)
[2018-04-29] MEDS: ZyrTEC TAB 10 MG PO SCH (08:37)
[2018-04-29] MEDS: PriLOSEC PO SCH (08:38)
[2018-04-29] MEDS: TRICOR TAB 160 MG PO SCH (08:38)
[2018-04-29] MEDS: ASPIRIN EC 81 MG PO SCH (08:38)
[2018-04-29] MEDS: PLAVIX PO SCH (08:39)
--- NOTE | 2018-04-29 13:16 | PCM.PROG ---
Progress Note - Progress Note for Day of Date: 04/28/18 - Subjective Subjective: 78 WF ADMITTED FOR SWING BED PT, CURRENT COOPERATIVE WITH PHYSICAL THERAPY, IMPROVING. LABS STABLE. NO NEW MEDICATION CHANGES. PT REPORTS IMPROVING STRENGTH, "STILL A LITTLE UNSTEADY" - Past Medical Family Social History Past Med/Fam/Surg Hx: No changes since H&P Allergies: Allergies codeine Allergy (Verified 04/09/18 08:16) - Review of Systems ROS: No change since H&P - Vital Signs and I&O's Vital Signs: Temperature 98.3 F Pulse Rate [Right Brachial] 78 Pulse Rate [Left Brachial] 79 Pulse Rate [Left Radial] 85 Respiratory Rate 18 Blood Pressure [Left Arm] 132/63 Blood Pressure [Right Arm] 140/63 Blood Pressure 137/82 O2 Sat by Pulse Oximetry 98 Intake and Output: Intake & Output 04/27/18 04/28/18 04/29/18 04/30/18 11:59 11:59 11:59 11:59 Intake Total 480 / 480 600 / 600 840 / 840 Balance 480 / 480 600 / 600 840 / 840 - Physical Exam Oriented: Normal Eyes: Normal Ear: Normal Nose: Normal Respiratory: Diminished Cardiovascular: Normal : Normal Auscultation: Bowel Sounds: Normal Tenderness: Normal Skin: Normal Musculoskeletal: Back:Lumbar Psychiatric: Anxiety Affect: Anxious Speech Pattern: Clear, Appropriate - Laboratory and Diagnostics Result Diagrams: 04/27/18 04:34 04/27/18 04:34 Labs: Laboratory WBC 4.4 X10^3/uL (3.6-10.0) 04/27/18 04:34 RBC 3.32 X10^6/uL (3.5-5.4) L 04/27/18 04:34 Hgb 9.7 g/dL (12.0-16.0) L 04/27/18 04:34 Hct 27.5 % (36.0-47.0) L 04/27/18 04:34 MCV 82.9 fL (80.0-100.0) 04/27/18 04:34 MCH 29.1 pg (27.0-34.0) 04/27/18 04:34 MCHC 35.1 g/dL (33.0-35.0) H 04/27/18 04:34 RDW 12.2 % (11.6-16.5) 04/27/18 04:34 Plt Count 356 X10^3/uL (150.0-450.0) 04/27/18 04:34 MPV 7.9 fL (7.4-11.0) 04/27/18 04:34 Neut % (Auto) 52.4 % (42.0-75.0) 04/27/18 04:34 Lymph % (Auto) 31.7 % (21.0-51.0) 04/27/18 04:34 Franklin % (Auto) 10.6 % (0.0-13.0) 04/27/18 04:34 Eos % (Auto) 4.4 % (0.9-2.9) H 04/27/18 04:34 Baso % (Auto) 0.9 % (0.2-1.0) 04/27/18 04:34 Neut # (Auto) 2.3 x10^3/uL (2.2-4.8) 04/27/18 04:34 Lymph # (Auto) 1.4 X10^3/uL (1.3-2.9) 04/27/18 04:34 Franklin # (Auto) 0.5 x10^3/uL (0.3-0.8) 04/27/18 04:34 Eos # (Auto) 0.2 x10^3/uL (0.0-0.2) 04/27/18 04:34 Baso # (Auto) 0.0 X10^3/uL (0.0-0.1) 04/27/18 04:34 Absolute Nucleated RBC 0.0 /100WBC 04/27/18 04:34 Sodium 137 mmol/L (136-145) 04/27/18 04:34 Corrected Sodium 137 mmol/L (136-145) 04/27/18 04:34 Potassium 4.3 mmol/L (3.5-5.1) 04/27/18 04:34 Chloride 102 mmol/L (98-107) 04/27/18 04:34 Carbon Dioxide 28.7 mmol/L (21-32) 04/27/18 04:34 BUN 12 mg/dL (7-18) 04/27/18 04:34 Creatinine 1.19 mg/dL (0.55-1.02) H 04/27/18 04:34 Est GFR (MDRD) Af Amer 56 (>60) L 04/27/18 04:34 Est GFR (MDRD) Non-Af 46 (>60) L 04/27/18 04:34 Glucose 111 mg/dL (65-99) H 04/27/18 04:34 POC Glucose (mg/dL) 226 mg/dL (65-99) H 04/28/18 16:48 Calcium 8.2 mg/dL (8.5-10.1) L 04/27/18 04:34 Corrected Calcium 9.0 mg/dL (8.5-10.1) 04/27/18 04:34 Total Bilirubin 0.40 mg/dL (0.2-1.0) 04/27/18 04:34 AST 29 Units/L (15-37) 04/27/18 04:34 ALT 33 Units/L (12-78) 04/27/18 04:34 Alkaline Phosphatase 51 Units/L (46-116) 04/27/18 04:34 Total Protein 6.7 g/dL (6.4-8.2) 04/27/18 04:34 Albumin 3.0 g/dL (3.4-5.0) L 04/27/18 04:34 Globulin 3.7 g/dL (2.5-4.5) 04/27/18 04:34 Albumin/Globulin Ratio 0.8 Ratio (1.1-2.1) L 04/27/18 04:34 - Plan (1) Weakness Status: Acute Plan: CONTINUE WITH PHYSICAL THERAPY, ROUTINE LABS. BP AND BLOOD SUGAR MONITROING (2) Diabetes Status: Acute (3) History of CVA (cerebrovascular accident) Status: Acute (4) Vertigo of central origin Status: Acute
[2018-04-29] MEDS: ZOCOR TAB 20 MG PO SCH (20:11)
[2018-04-29] MEDS: COLACE CAP 100 MG PO SCH (20:11)
[2018-04-29] MEDS: NORVASC TAB 5 MG PO SCH (20:11)
[2018-04-29] MEDS: HumuLIN R SUBCUT PRN (20:55)
[2018-04-30] MEDS: ANTIVERT TAB 25 MG PO SCH ×3 (05:13→21:31)
[2018-04-30] MEDS: TRICOR TAB 160 MG PO SCH (08:19)
[2018-04-30] MEDS: ZyrTEC TAB 10 MG PO SCH (08:19)
[2018-04-30] MEDS: ASPIRIN EC 81 MG PO SCH (08:19)
[2018-04-30] MEDS: PLAVIX PO SCH (08:20)
[2018-04-30] MEDS: PriLOSEC PO SCH (08:20)
[2018-04-30] MEDS: NORVASC TAB 5 MG PO SCH (21:31)
[2018-04-30] MEDS: COLACE CAP 100 MG PO SCH (21:31)
[2018-04-30] MEDS: ZOCOR TAB 20 MG PO SCH (21:31)
[2018-05-01] MEDS: ANTIVERT TAB 25 MG PO SCH ×3 (05:30→21:53)
[2018-05-01 06:30] LABS: BASOPHILS % (AUTO) 0.9 % (0.2-1.0); EOSINOPHILS # (AUTO) 0.1 x10^3/uL (0.0-0.2); EOSINOPHILS % (AUTO) 3.8 % (0.9-2.9); HEMATOCRIT 27.7 % (36.0-47.0); HEMOGLOBIN 9.8 g/dL (12.0-16.0); LYMPHOCYTES # (AUTO) 1.5 X10^3/uL (1.3-2.9); LYMPHOCYTES % (AUTO) 39.9 % (21.0-51.0); MEAN CORPUSCULAR HEMOGLOBIN 29.2 pg (27.0-34.0); MEAN CORPUSCULAR HGB CONC 35.5 g/dL (33.0-35.0); MEAN CORPUSCULAR VOLUME 82.2 fL (80.0-100.0); MEAN PLATELET VOLUME 8.1 fL (7.4-11.0); MONOCYTES # (AUTO) 0.4 x10^3/uL (0.3-0.8); MONOCYTES % (AUTO) 11.1 % (0.0-13.0); NEUTROPHILS # (AUTO) 1.7 x10^3/uL (2.2-4.8); NEUTROPHILS % (AUTO) 44.3 % (42.0-75.0); PLATELET COUNT 356 X10^3/uL (150.0-450.0); RED BLOOD COUNT 3.37 X10^6/uL (3.5-5.4); RED CELL DISTRIBUTION WIDTH 12.5 % (11.6-16.5); WHITE BLOOD COUNT 3.8 X10^3/uL (3.6-10.0)
[2018-05-01 06:46] LABS: ALBUMIN 3.1 g/dL (3.4-5.0); CALCIUM 8.3 mg/dL (8.5-10.1); CARBON DIOXIDE 26.1 mmol/L (21-32); CREATININE 1.2 mg/dL (0.55-1.02); TOTAL PROTEIN 6.7 g/dL (6.4-8.2)
[2018-05-01] MEDS: ASPIRIN EC 81 MG PO SCH (08:24)
[2018-05-01] MEDS: TRICOR TAB 160 MG PO SCH (08:26)
[2018-05-01] MEDS: ZyrTEC TAB 10 MG PO SCH (08:26)
[2018-05-01] MEDS: PriLOSEC PO SCH (08:26)
[2018-05-01] MEDS: PLAVIX PO SCH (08:26)
[2018-05-01] MEDS: NORVASC TAB 5 MG PO SCH (20:54)
[2018-05-01] MEDS: ZOCOR TAB 20 MG PO SCH (20:54)
[2018-05-01] MEDS: COLACE CAP 100 MG PO SCH (20:54)
[2018-05-01] MEDS: KLONOPIN TAB 0.5 MG PO PRN (20:55)
[2018-05-02] MEDS: ANTIVERT TAB 25 MG PO SCH ×2 (06:10→14:02)
[2018-05-02 08:03] VITALS: BP 140/59
[2018-05-02] MEDS: PLAVIX PO SCH (08:09)
[2018-05-02] MEDS: ASPIRIN EC 81 MG PO SCH (08:09)
[2018-05-02] MEDS: TRICOR TAB 160 MG PO SCH (08:10)
[2018-05-02] MEDS: PriLOSEC PO SCH (08:10)
[2018-05-02] MEDS: ZyrTEC TAB 10 MG PO SCH (08:10)
== END 2018-05-02 18:15 | disposition home health service (06) | DRG 950 ==
LOC: MED/SURG 15:30
PROVIDERS: ADMIT Internal Medicine; ATTEND Internal Medicine
DX: Z51.89 Encounter for other specified aftercare; I10 Essential (primary) hypertension; R53.1 Weakness; R51 Headache; R26.89 Other abnormalities of gait and mobility; E11.65 Type 2 diabetes mellitus with hyperglycemia; R42 Dizziness and giddiness; E78.2 Mixed hyperlipidemia; K21.9 Gastro-esophageal reflux disease without esophagitis
CPT/HCPCS: 36415; 80053; 85025; 97110; 97112; 97116; 97162; 97167; 97530; 97535; 99231; J1815; J3490